=== PATIENT | female | born 1930 | race Caucasian/White ===

== ENCOUNTER 2017-12-09 17:00 | Inpatient (IN) | payer MEDICARE, BC ==
[~2017-12-09] VITALS: Ht 160 cm; Wt 49.1 kg
--- NOTE | ~2017-12-09 | MORECARE ---
CASE MANAGEMENT DISCHARGE SUMMARY PATIENT: BONNIE PAT UNIT: [id number] ADM DATE: 12/09/17 AGE: 87 : 30 SEX: F ROOM/BED: D.210 AUTHOR: NAUN,DOC PHYSICIAN: REFERRING PHYSICIAN: JORDAN FRANCE MD DATE OF SERVICE: 12/21/17 Discharge Plan Patient Name: BONNIE PAT Facility: [facility]:[place] : 1930 Planned Disposition: Alf Facility Anticipated Discharge Date: 12/22/17 Discharge Date: Expected LOS: 13 Initial Reviewer: [id number] Initial Review Date: 12/14/2017 Generated: 12/21/17 12:42 pm Comments DCP- Discharge Planning Updated by [id number]: Danilo Lyon on 12/21/17 7:[address] Patient Name: BONNIE PAT Encounter No: [id number] : 1930 Primary Insurance: MEDICARE A & B Anticipated DC Date: 12-22-2017 Planned Disposition: Alf Facility External Planned Provider: [facility], MEDICARE REHAB BED DCP follow-up note: CM FAXED REHAB REFERRAL TO [facility] AT [phone]. CM TO CALL AND FOLLOW UP WITH [facility] LATER TODAY AT [phone]. CM WAITING REHAB ADMISSION DETERMINATION FROM [facility] IN [place]. ROMEO Arreaga DCP- Discharge Planning Updated by [id number]: Danilo Lyon on 12/20/17 4:[address] Patient Name: BONNIE PAT Encounter No: [id number] : 1930 Primary Insurance: MEDICARE A & B Anticipated DC Date: 12-22-2017 Planned Disposition: Alf Facility External [facility]ARE REH[facility] BED DCP follow-up note: CM SPOKE TO DR. CHILDS WHO REPORTS PT MAY NEED REHAB AT DISCHARGE. CM SPOKE TO PT AND SPOUSE IN ROOM. BONNIE PAT provided verbal consent to discuss current and ongoing needs with/in the presence of: GERMANIA SPOUSE. CM DISCUSSED AVAILABILITY OF MEDICAL EQUIPMENT, HOME HEALTH AND REHAB SERVICES. PT THINKS SHE WILL NEED REHAB AT DISCHARGE, WANTS REFERRAL TO [facility] SHE WAS THERE LAST YEAR AND RECEIVED GOOD REHAB SERVICES. CHOICE SIGNED, IMPORTANT MESSAGE FROM MEDICARE PROVIDED AND DISCUSSED. CM TO SEND REHAB REFERRAL TO [facility] SOON POSSIBLE FOR REHAB ADMISSION DETERMINATION. Danilo Lyon, CASE MANAGEMENT DCP- Discharge Planning Updated by [email or web address]: Lydia Michael on 12/14/17 4:[address] Patient Name: BONNIE PAT Admission Status: Elective Accout number: [id number] Admission Date: 12-09-2017 : 1930 Admission Diagnosis:PNEUMONIA, UNSPECIFIED ORGANISM Attending: JORDAN FRANCE Current LOS: 5 Anticipated DC Date: Planned Disposition: Home Primary Insurance: MEDICARE A & B Discharge Planning Comments: CM met with patient's son Germania Pat whom lives with patient and her . Plans for patient to return to their home. Patient may need walk test if continues to need 02. Family denies any discharge needs at this time. CM will continue to follow and assist as needed with discharge planning / needs. General Maintenance Technician: Lydia Michael DCPIA - Discharge Planning Initial Assessment Updated by [email or web address]: Danilo Lyon on 12/21/17 11:37 am * Is the patient Alert and Oriented? Yes * How many steps to enter\exit or inside your home? * PCP Dr. Davie Flores * Pharmacy [facility] in [place] * Preadmission Environment Home with Family * ADLs Independent * Equipment Walker * Other Equipment Bedside commode, cane, tub bench, * List name and contact numbers for known caregivers / representatives who currently or will assist patient after discharge: GERMANIA PAT, SPOUSE, CIPRIANO RIVERA, DTR, * Verbal permission to speak to the caregivers and representatives has been obtained from the patient. Yes * Community resources currently utilized None * Additional services required to return to the preadmission environment? No * Can the patient safely return to the preadmission environment? Yes * Has this patient been hospitalized within the prior 30 days at any hospital? No Coverage Notice Reviewer: [id number] - Danilo Lyon Notice Issued Date-Time: 12/20/2017 15:25 Notice Type: Patient Choice Letter Notice Delivered To: Family Member Relationship to Patient: Spouse Brand Planner Name: GERMANIA PAT Delivery Method: HAND - Hand Delivered Allie Days: Prior Verbal Notification: Recipient Understood Notice: Yes Recipient Signature: Yes Med Rec Note Co-signed by Attending: Coverage Notice Comment: [facility] [place] Reviewer: [id number] Svitlana Lyon Notice Issued Date-Time: 12/20/2017 15:25 Notice Type: IM Discharge Notice Notice Delivered To: Family Member Relationship to Patient: Spouse Brand Planner Name: GERMANIA PAT Delivery Method: HAND - Hand Delivered Allie Days: Prior Verbal Notification: Recipient Understood Notice: Yes Recipient Signature: Yes Med Rec Note Co-signed by Attending: Coverage Notice Comment: Last DP export: 12/21/17 7:25 Patient Name: BONNIE PAT Page 31959 at 1142 All edits/amendments must be made on the electronic document DICTATION DATE: 12/21/17 1141 AGENT SPA DESK: ANDREAS 12/21/17 1141 RPT#: [id number] DC DATE: STATUS: ADM IN [facility] [address] [place] [address] END OF REPORT
--- NOTE | ~2017-12-09 | MORECARE ---
CASE MANAGEMENT DISCHARGE SUMMARY PATIENT: BONNIE SHAW UNIT: [id number] ADM DATE: 12/09/17 AGE: 87 : 30 SEX: F ROOM/BED: D.2301 AUTHOR: ISAK MAGALLON PHYSICIAN: REFERRING PHYSICIAN: JORDAN FRANCE MD DATE OF SERVICE: 12/14/17 Discharge Plan Patient Name: BONNIE SHAW [facility] [facility] 1930 Planned Disposition: Home Anticipated Discharge Date: Discharge Date: Expected LOS: Initial Reviewer: [id number] Initial Review Date: 12/14/2017 Generated: 12/14/17 6:29 pm DCPIA - Discharge Planning Initial Assessment Updated by [id number]: Lydia Michael on 12/14/17 5:23 pm * Is the patient Alert and Oriented? Yes * How many steps to enter\exit or inside your home? * PCP Dr. Davie Flores * Pharmacy [facility] in [place] * Preadmission Environment Home with Family * ADLs Independent * Equipment Walker * Other Equipment Bedside commode, cane, tub bench, * Verbal permission to speak to the caregivers and representatives has been obtained from the patient. Yes * Community resources currently utilized None * Additional services required to return to the preadmission environment? No * Can the patient safely return to the preadmission environment? Yes * Has this patient been hospitalized within the prior 30 days at any hospital? No Last DP export: 12/14/17 4:22 Patient Name: BONNIE SHAW Page 48818 at 1729 All edits/amendments must be made on the electronic document DICTATION DATE: 12/14/171728 CUSTOMER ACCOUNTS ADVISOR: ANDREAS 12/14/171728 RPT#: [id number] DC DATE: STATUS: ADM IN [facility] [address] [place] [address] END OF REPORT
--- NOTE | ~2017-12-09 | MORECARE ---
CASE MANAGEMENT DISCHARGE SUMMARY PATIENT: BONNIE PAT UNIT: [id number] ADM DATE: 12/09/17 AGE: 87 : 30 SEX: F ROOM/BED: D.2107 AUTHOR: NAUN,DOC PHYSICIAN: REFERRING PHYSICIAN: JORDAN FRANCE MD DATE OF SERVICE: 12/21/17 Discharge Plan Patient Name: BONNIE PAT Facility: [facility] : 1930 Planned Disposition: Alf Facility Anticipated Discharge Date: 12/22/17 Discharge Date: Expected LOS: 13 Initial Reviewer: [id number] Initial Review Date: 12/14/2017 Generated: 12/21/17 4:36 pm Comments DCP- Discharge Planning Updated by [email or web address]: Danilo Lyon on 12/21/17 2:[address] Patient Name: BONNIE PAT Encounter No: [id number] : 1930 Primary Insurance: MEDICARE A & B Anticipated DC Date: 12-22-2017 Planned Disposition: Alf Facility External Planned Provider: [facility], MEDICARE REHAB BED DCP follow-up note: CM FAXED REHAB REFERRAL TO [facility] IN [facility] AT [phone]. CM TO CALL AND FOLLOW UP WITH [facility] LATER TODAY AT [phone]. CM WAITING REHAB ADMISSION DETERMINATION FROM [facility] IN [place]. Danilo Lyon, CASE MANAGEMENT Appended by Danilo Lyon on 12/21/2017 15:29 CDT: THOMAS SPOKE TO [facility] AT [facility], , WHO HAS RECEIVED REFERRAL AND WILL SCREEN FOR REHAB ADMIT. CM WAITING REHAB ADMISSION DETERMINATION FROM [facility] IN [place]. ROMEO Arreaga DCP- Discharge Planning Updated by [email or web address]: Danilo Lyon on 12/20/17 4:[address] Patient Name: BONNIE PAT Encounter No: [id number] : 1930 Primary Insurance: MEDICARE A & B Anticipated DC Date: 12-22-2017 Planned Disposition: Alf Facility External Planned Provider: [facility], MEDICARE REHAB BED DCP follow-up note: CM SPOKE TO DR. CHILDS WHO REPORTS PT MAY NEED REHAB AT DISCHARGE. CM SPOKE TO PT AND SPOUSE IN ROOM. BONNIE PAT provided verbal consent to discuss current and ongoing needs with/in the presence of: GERMANIA, SPOUSE. CM DISCUSSED AVAILABILITY OF MEDICAL EQUIPMENT, HOME HEALTH AND REHAB SERVICES. PT THINKS SHE WILL NEED REHAB AT DISCHARGE, WANTS REFERRAL TO [facility] SHE WAS THERE LAST YEAR AND RECEIVED GOOD REHAB SERVICES. CHOICE SIGNED, IMPORTANT MESSAGE FROM MEDICARE PROVIDED AND DISCUSSED. CM TO SEND REHAB REFERRAL TO [facility] SOON POSSIBLE FOR REHAB ADMISSION DETERMINATION. Danilo Lyon, CASE MANAGEMENT DCP- Discharge Planning Updated by [id number]: Lydia Michael on 12/14/17 4:[address] Patient Name: BONNIE PAT Admission Status: Elective Accout number: [id number] Admission Date: 12-09-2017 : 1930 Admission Diagnosis:PNEUMONIA, UNSPECIFIED ORGANISM Attending: JORDAN FRANCE Current LOS: 5 Anticipated DC Date: Planned Disposition: Home Primary Insurance: MEDICARE A & B Discharge Planning Comments: CM met with patient's son Germania Pat whom lives with patient and her . Plans for patient to return to their home. Patient may need walk test if continues to need 02. Family denies any discharge needs at this time. CM will continue to follow and assist as needed with discharge planning / needs. Manager Business Systems: Lydia Michael DCPIA - Discharge Planning Initial Assessment Updated by [email or web address]: Danilo Lyon on 12/21/17 11:37 am * Is the patient Alert and Oriented? Yes * How many steps to enter\exit or inside your home? * PCP Dr. Davie Flores * Pharmacy [facility] in [place] * Preadmission Environment Home with Family * ADLs Independent * Equipment Walker * Other Equipment Bedside commode, cane, tub bench, * List name and contact numbers for known caregivers / representatives who currently or will assist patient after discharge: GERMANIA PAT, SPOUSE, CIPRIANO RIVERA, DTR, * Verbal permission to speak to the caregivers and representatives has been obtained from the patient. Yes * Community resources currently utilized None * Additional services required to return to the preadmission environment? No * Can the patient safely return to the preadmission environment? Yes * Has this patient been hospitalized within the prior 30 days at any hospital? No Coverage Notice Reviewer: [id number] Lyon Notice Issued Date-Time: 12/20/2017 15:25 Notice Type: Patient Choice Letter Notice Delivered To: Family Member Relationship to Patient: Spouse Staff Development Manager Name: GERMANIA PAT Delivery Method: HAND - Hand Delivered Allie Days: Prior Verbal Notification: Recipient Understood Notice: Yes Recipient Signature: Yes Med Rec Note Co-signed by Attending: Coverage Notice Comment: [facility] [place] Reviewer: [email or web address] Svitlana Lyon Notice Issued Date-Time: 12/20/2017 15:25 Notice Type: IM Discharge Notice Notice Delivered To: Family Member Relationship to Patient: Spouse Staff Development Manager Name: GERMANIA PAT Delivery Method: HAND - Hand Delivered Allie Days: Prior Verbal Notification: Recipient Understood Notice: Yes Recipient Signature: Yes Med Rec Note Co-signed by Attending: Coverage Notice Comment: Last DP export: 12/21/17 10:42 Patient Name: BONNIE PAT Page 58830 at 1536 All edits/amendments must be made on the electronic document DICTATION DATE: 12/21/171534 LABOUR MARKET ECONOMIST: ANDREAS 12/21/171534 RPT#: [id number] DC DATE: STATUS: ADM IN [facility] [address] [place] [address] END OF REPORT
--- NOTE | ~2017-12-09 | MORECARE ---
CASE MANAGEMENT DISCHARGE SUMMARY PATIENT: BONNIE PAT UNIT: [id number] ADM DATE: 12/09/17 AGE: 87 : 30 SEX: F ROOM/BED: D.2101 AUTHOR: NAUN,DOC PHYSICIAN: REFERRING PHYSICIAN: JORDAN FRANCE MD DATE OF SERVICE: 12/25/17 Discharge Plan Patient Name: BONNIE PAT Facility: [facility]:[place] : 1930 Planned Disposition: Senior Living Facility Anticipated Discharge Date: 12/25/17 Discharge Date: Expected LOS: 16 Initial Reviewer: [id number] Initial Review Date: 12/14/2017 Generated: 12/25/17 2:39 pm Comments DCP- Discharge Planning Updated by [email or web address]: Danilo Lyon on 12/25/17 11:[address] Patient Name: BONNIE PAT Encounter No: [id number] : 1930 Primary Insurance: MEDICARE A & B Anticipated DC Date: 12-25-2017 Planned Disposition: Senior Living Facility External Planned Provider: [facility], MEDICARE REHAB BED DCP follow-up note: CM SPOKE TO COLEMAN AT [facility], , WHO REPORTS THEIR DOCTOR IS CONCERNED ABOUT INCREASING WHITE BLOOD CELL COUNT. CM NOTIFIED WILLIAM NELSON WHO ORDERED FURTHER LAB TESTING. CM RECEIVED LAB TESTING INDICATING DECREASING WHITE BLOOD CELLS AND FAXED UPDATE TO [facility] AT [phone]. CM CALLED ROMA AT [facility] AT [phone], DISCUSSED LAB TESTING, [facility] TO ACCEPT TODAY AND REQUESTED FAMILY TRANSPORT PT WILL NOT QUALIFY FOR AMBULANCE TRANSPORT. CM NOTIFIED WILLIAM NELSON WHO INFORMED CM THAT PT WILL DISCHARGE TO REHAB TODAY. CM NOTIFIED PT AND FAMILY IN ROOM, PT WANTS TO DISCHARGE TO REHAB TODAY, FAMILY REPORTS ABILITY TO TRANSPORT PT TO REHAB IN [place] AT DISCHARGE TODAY. IMPORTANT MESSAGE FROM MEDICARE PROVIDED AND EXPLAINED. CM FAXED DISCHARGE INFORMATION TO [facility] AT [phone]. NURSE REPORT TO BE CALLED TO [facility] IN [place], , FAMILY TO TRANSPORT PT TO [facility] IN [place]. ROMEO Arreaga DCP- Discharge Planning Updated by [email or web address]: Fatou Lipscomb on 12/22/17 11:[address] Patient Name: BONNIE PAT Admission Status: Elective Accout number: [id number] Admission Date: 12-09-2017 : 1930 Admission Diagnosis:PNEUMONIA, UNSPECIFIED ORGANISM Attending: JORDAN FRANCE Current LOS: 13 Anticipated DC Date: 12-22-2017 Planned Disposition: Senior Living Facility Primary Insurance: MEDICARE A & B Discharge Planning Comments: CM SPOKE WITH ROMA AT [facility], PHONE NUMBER [phone], AND SHE STATES THEY CAN TAKE THE PATIENT ON MONDAY. STATES NO NURSE PRACTITIONER ON THE WEEKEND AND THEY ARE AFRAID HER ILLNESS WILL DECLINE AND SHE WOULD BE SENT BACK TO THE HOSPITAL. CM TO CALL [facility] MONDAY TO SET UP TRANSPORT OF PATIENT. Hardware Trainer: Fatou Lipscomb DCP- Discharge Planning Updated by [id number]: Danilo Lyon on 12/21/17 2:[address] Patient Name: BONNIE PAT Encounter No: [id number] : 1930 Primary Insurance: MEDICARE A & B Anticipated DC Date: 12-22-2017 Planned Disposition: Senior Living Facility External Planned Provider: [facility], MEDICARE REHAB BED DCP follow-up note: CM FAXED REHAB REFERRAL TO [facility] AT [phone]. CM TO CALL AND FOLLOW UP WITH [facility] LATER TODAY AT [phone]. CM WAITING REHAB ADMISSION DETERMINATION FROM [facility] IN [place]. Danilo Lyon, CASE MANAGEMENT Appended by Danilo Lyon on 12/21/2017 15:29 CDT: CM SPOKE TO ROMA AT [facility], , WHO HAS RECEIVED REFERRAL AND WILL SCREEN FOR REHAB ADMIT. CM WAITING REHAB ADMISSION DETERMINATION FROM [facility] IN [place]. ROMEO Arreaga DCP- Discharge Planning Updated by [email or web address]: Danilo Lyon on 12/20/17 4:[address] Patient Name: BONNIE PAT Encounter No: [id number] : 1930 Primary Insurance: MEDICARE A & B Anticipated DC Date: 12-22-2017 Planned Disposition: Senior Living Facility External Planned Provider: [facility], MEDICARE REHAB BED DCP follow-up note: CM SPOKE TO DR. CHILDS WHO REPORTS PT MAY NEED REHAB AT DISCHARGE. CM SPOKE TO PT AND SPOUSE IN ROOM. BONNIE PAT provided verbal consent to discuss current and ongoing needs with/in the presence of: GERMANIA, SPOUSE. CM DISCUSSED AVAILABILITY OF MEDICAL EQUIPMENT, HOME HEALTH AND REHAB SERVICES. PT THINKS SHE WILL NEED REHAB AT DISCHARGE, WANTS REFERRAL TO [facility] SHE WAS THERE LAST YEAR AND RECEIVED GOOD REHAB SERVICES. CHOICE SIGNED, IMPORTANT MESSAGE FROM MEDICARE PROVIDED AND DISCUSSED. CM TO SEND REHAB REFERRAL TO [facility] SOON POSSIBLE FOR REHAB ADMISSION DETERMINATION. Danilo Lyon, CASE MANAGEMENT DCP- Discharge Planning Updated by [email or web address]: Lydia Michael on 12/14/17 4:[address] Patient Name: BONNIE PAT Admission Status: Elective Accout number: [id number] Admission Date: 12-09-2017 : 1930 Admission Diagnosis:PNEUMONIA, UNSPECIFIED ORGANISM Attending: JORDAN FRANCE Current LOS: 5 Anticipated DC Date: Planned Disposition: Home Primary Insurance: MEDICARE A & B Discharge Planning Comments: CM met with patient's son Germania Pat whom lives with patient and her . Plans for patient to return to their home. Patient may need walk test if continues to need 02. Family denies any discharge needs at this time. CM will continue to follow and assist as needed with discharge planning / needs. Hardware Trainer: Lydia Michael DCPIA - Discharge Planning Initial Assessment Updated by [email or web address]: Danilo Lyon on 12/21/17 11:37 am * Is the patient Alert and Oriented? Yes * How many steps to enter\exit or inside your home? * PCP Dr. Davie Flores * Pharmacy [facility] in [place] * Preadmission Environment Home with Family * ADLs Independent * Equipment Walker * Other Equipment Bedside commode, cane, tub bench, * List name and contact numbers for known caregivers / representatives who currently or will assist patient after discharge: GERMANIA PAT, SPOUSE, CIPRIANO RIVERA, DTR, * Verbal permission to speak to the caregivers and representatives has been obtained from the patient. Yes * Community resources currently utilized None * Additional services required to return to the preadmission environment? No * Can the patient safely return to the preadmission environment? Yes * Has this patient been hospitalized within the prior 30 days at any hospital? No Coverage Notice Reviewer: DERRICK Lyon Notice Issued Date-Time: 12/20/2017 15:25 Notice Type: Patient Choice Letter Notice Delivered To: Family Member Relationship to Patient: Spouse Lye Peel Operator Name: GERMANIA PAT Delivery Method: HAND - Hand Delivered Allie Days: Prior Verbal Notification: Recipient Understood Notice: Yes Recipient Signature: Yes Med Rec Note Co-signed by Attending: Coverage Notice Comment: [facility] [place] Reviewer: DERRICK Lyon Notice Issued Date-Time: 12/20/2017 15:25 Notice Type: IM Discharge Notice Notice Delivered To: Family Member Relationship to Patient: Spouse Lye Peel Operator Name: GERMANIA PAT Delivery Method: HAND - Hand Delivered Allie Days: Prior Verbal Notification: Recipient Understood Notice: Yes Recipient Signature: Yes Med Rec Note Co-signed by Attending: Coverage Notice Comment: Reviewer: DERRICK Lyon Notice Issued Date-Time: 12/25/2017 11:45 Notice Type: IM Discharge Notice Notice Delivered To: Family Member Relationship to Patient: Spouse Lye Peel Operator Name: germania pat Delivery Method: HAND - Hand Delivered Allie Days: Prior Verbal Notification: Recipient Understood Notice: Yes Recipient Signature: Yes Med Rec Note Co-signed by Attending: Coverage Notice Comment: Last DP export: 12/25/17 11:08 Patient Name: BONNIE PAT Page 29564 at 1339 All edits/amendments must be made on the electronic document DICTATION DATE: 12/25/17 1339 PROCESS CHEESE COOKER: ANDREAS 12/25/17 1339 RPT#: [id number] DC DATE: STATUS: ADM IN [facility] [address] [place] [address] END OF REPORT
--- NOTE | ~2017-12-09 | MORECARE ---
CASE MANAGEMENT DISCHARGE SUMMARY PATIENT: BONNIE PAT UNIT: [id number] ADM DATE: 12/09/17 AGE: 87 : 30 SEX: F ROOM/BED: D.210 AUTHOR: NAUN,DOC PHYSICIAN: REFERRING PHYSICIAN: JORDAN FRANCE MD DATE OF SERVICE: 12/21/17 Discharge Plan Patient Name: BONNIE PAT Facility: [facility]:[place] : 1930 Planned Disposition: Fdc Facility Anticipated Discharge Date: 12/22/17 Discharge Date: Expected LOS: 13 Initial Reviewer: [id number] Initial Review Date: 12/14/2017 Generated: 12/21/17 9:25 am Comments DCP- Discharge Planning Updated by [id number]: Danilo Lyon on 12/21/17 7:[address] Patient Name: BONNIE PAT Encounter No: [id number] : 1930 Primary Insurance: MEDICARE A & B Anticipated DC Date: 12-22-2017 Planned Disposition: Fdc Facility External Planned Provider: [facility], MEDICARE REHAB BED DCP follow-up note: CM FAXED REHAB REFERRAL TO [facility] AT [phone]. CM TO CALL AND FOLLOW UP WITH [facility] LATER TODAY AT [phone]. CM WAITING REHAB ADMISSION DETERMINATION FROM [facility] IN [place]. ROMEO Arreaga DCP- Discharge Planning Updated by [email or web address]: Danilo Lyon on 12/20/17 4:[address] Patient Name: BONNIE PAT Encounter No: [id number] : 1930 Primary Insurance: MEDICARE A & B Anticipated DC Date: 12-22-2017 Planned Disposition: Fdc Facility External [facility] DCP follow-up note: CM SPOKE TO DR. CHILDS WHO REPORTS PT MAY NEED REHAB AT DISCHARGE. CM SPOKE TO PT AND SPOUSE IN ROOM. BONNIE PAT provided verbal consent to discuss current and ongoing needs with/in the presence of: GERMANIA SPOUSE. CM DISCUSSED AVAILABILITY OF MEDICAL EQUIPMENT, HOME HEALTH AND REHAB SERVICES. PT THINKS SHE WILL NEED REHAB AT DISCHARGE, WANTS REFERRAL TO [facility] SHE WAS THERE LAST YEAR AND RECEIVED GOOD REHAB SERVICES. CHOICE SIGNED, IMPORTANT MESSAGE FROM MEDICARE PROVIDED AND DISCUSSED. CM TO SEND REH[facility] REFERRAL TO [facility] SOON POSSIBLE FOR REHAB ADMISSION DETERMINATION. Danilo Lyon, CASE MANAGEMENT DCP- Discharge Planning Updated by [email or web address]: Lydia Michael on 12/14/17 4:[address] Patient Name: BONNIE PAT Admission Status: Elective Accout number: [id number] Admission Date: 12-09-2017 : 1930 Admission Diagnosis:PNEUMONIA, UNSPECIFIED ORGANISM Attending: JORDAN FRANCE Current LOS: 5 Anticipated DC Date: Planned Disposition: Home Primary Insurance: MEDICARE A & B Discharge Planning Comments: CM met with patient's son Germania Pat whom lives with patient and her . Plans for patient to return to their home. Patient may need walk test if continues to need 02. Family denies any discharge needs at this time. CM will continue to follow and assist as needed with discharge planning / needs. Lead Level Designer: Lydia Michael DCPIA - Discharge Planning Initial Assessment Updated by [email or web address]: Lydia Michael on 12/14/17 5:23 pm * Is the patient Alert and Oriented? Yes * How many steps to enter\exit or inside your home? * PCP Dr. Davie Flores * Pharmacy [facility] in [place] * Preadmission Environment Home with Family * ADLs Independent * Equipment Walker * Other Equipment Bedside commode, cane, tub bench, * Verbal permission to speak to the caregivers and representatives has been obtained from the patient. Yes * Community resources currently utilized None * Additional services required to return to the preadmission environment? No * Can the patient safely return to the preadmission environment? Yes * Has this patient been hospitalized within the prior 30 days at any hospital? No Coverage Notice Reviewer: [id number] - Danilo Lyon Notice Issued Date-Time: 12/20/2017 15:25 Notice Type: Patient Choice Letter Notice Delivered To: Family Member Relationship to Patient: Spouse Hand Shaker Name: GERMANIA PAT Delivery Method: HAND - Hand Delivered Allie Days: Prior Verbal Notification: Recipient Understood Notice: Yes Recipient Signature: Yes Med Rec Note Co-signed by Attending: Coverage Notice Comment: [facility] [place] Reviewer: [id number] - Danilo Lyon Notice Issued Date-Time: 12/20/2017 15:25 Notice Type: IM Discharge Notice Notice Delivered To: Family Member Relationship to Patient: Spouse Hand Shaker Name: GERMANIA PAT Delivery Method: HAND - Hand Delivered Allie Days: Prior Verbal Notification: Recipient Understood Notice: Yes Recipient Signature: Yes Med Rec Note Co-signed by Attending: Coverage Notice Comment: Last DP export: 12/21/17 7:19 Patient Name: BONNIE PAT Page [id number] at 0825 All edits/amendments must be made on the electronic document DICTATION DATE: 12/21/17824 ENGINEER STEAM: ANDREAS 12/21/17824 RPT#: [id number] DC DATE: STATUS: ADM IN [facility] [address] [place] [address] END OF REPORT
--- NOTE | ~2017-12-09 | MORECARE ---
CASE MANAGEMENT DISCHARGE SUMMARY PATIENT: BONNIE PAT UNIT: [id number] ADM DATE: 12/09/17 AGE: 87 : 30 SEX: F ROOM/BED: D.2301 AUTHOR: NAUN,DOC PHYSICIAN: REFERRING PHYSICIAN: JORDAN FRANCE MD DATE OF SERVICE: 12/14/17 Discharge Plan Patient Name: BONNIE PAT Facility: [facility]:[place] : 1930 Planned Disposition: Home Anticipated Discharge Date: Discharge Date: Expected LOS: Initial Reviewer: [id number] Initial Review Date: 12/14/2017 Generated: 12/14/17 6:37 pm Comments DCP- Discharge Planning Updated by [id number]: Lydia Michael on 12/14/17 4:[address] Patient Name: BONNIE PAT Admission Status: Elective Accout number: [id number] Admission Date: 12-09-2017 : 1930 Admission Diagnosis:PNEUMONIA, UNSPECIFIED ORGANISM Attending: JORDAN FRANCE Current LOS: 5 Anticipated DC Date: Planned Disposition: Home Primary Insurance: MEDICARE A & B Discharge Planning Comments: CM met with patient's son Johan Pat whom lives with patient and her . Plans for patient to return to their home. Patient may need walk test if continues to need 02. Family denies any discharge needs at this time. CM will continue to follow and assist as needed with discharge planning / needs. Supervisor Inspection And Testing: Lydia Michael DCPIA - Discharge Planning Initial Assessment Updated by [email or web address]: Lydia Michael on 12/14/17 5:23 pm * Is the patient Alert and Oriented? Yes * How many steps to enter\exit or inside your home? * PCP Dr. Davie Flores * [facility] in [place] * Preadmission Environment Home with Family * ADLs Independent * Equipment Walker * Other Equipment Bedside commode, cane, tub bench, * Verbal permission to speak to the caregivers and representatives has been obtained from the patient. Yes * Community resources currently utilized None * Additional services required to return to the preadmission environment? No * Can the patient safely return to the preadmission environment? Yes * Has this patient been hospitalized within the prior 30 days at any hospital? No Last DP export: 12/14/17 4:29 Patient Name: BONNIE PAT Page 36182 at 1737 All edits/amendments must be made on the electronic document DICTATION DATE: 12/14/171735 MANAGER CARE MANAGEMENT: ANDREAS 12/14/171735 RPT#: [id number] DC DATE: STATUS: ADM IN [facility] [address] [place] [address] END OF REPORT
--- NOTE | ~2017-12-09 | MORECARE ---
CASE MANAGEMENT DISCHARGE SUMMARY PATIENT: BONNIE PAT UNIT: [id number] ADM DATE: 12/09/17 AGE: 87 : 30 SEX: F ROOM/BED: D.2106 AUTHOR: NAUN,DOC PHYSICIAN: REFERRING PHYSICIAN: JORDAN FRANCE MD DATE OF SERVICE: 12/25/17 Discharge Plan Patient Name: BONNIE PAT Facility: [facility]:[place] : 1930 Planned Disposition: Fci Facility Anticipated Discharge Date: 12/25/17 Discharge Date: Expected LOS: 16 Initial Reviewer: [id number] Initial Review Date: 12/14/2017 Generated: 12/25/17 1:08 pm Comments DCP- Discharge Planning Updated by [email or web address]: Danilo Lyon on 12/25/17 11:[address] Patient Name: BONNIE PAT Encounter No: [id number] : 1930 Primary Insurance: MEDICARE A & B Anticipated DC Date: 12-25-2017 Planned Disposition: [facility]ci Facility External Planned Provider: [facility], MEDICARE REHAB BED DCP follow-up note: CM SPOKE TO [place] AT [facility], , WHO REPORTS THEIR DOCTOR IS CONCERNED ABOUT INCREASING WHITE BLOOD CELL COUNT. CM NOTIFIED WILLIAM NELSON WHO ORDERED FURTHER LAB TESTING. CM RECEIVED LAB TESTING INDICATING DECREASING WHITE BLOOD CELLS AND FAXED UPDATE TO [facility] AT [phone]. CM CALLED ROMA AT [facility] AT [phone], DISCUSSED LAB TESTING, [facility] TO ACCEPT TODAY AND REQUESTED FAMILY TRANSPORT PT WILL NOT QUALIFY FOR AMBULANCE TRANSPORT. CM NOTIFIED WILLIAM NELSON WHO INFORMED CM THAT PT WILL DISCHARGE TO REHAB TODAY. CM NOTIFIED PT AND FAMILY IN ROOM, PT WANTS TO DISCHARGE TO REHAB TODAY, FAMILY REPORTS ABILITY TO TRANSPORT PT TO REHAB IN [place] AT DISCHARGE TODAY. IMPORTANT MESSAGE FROM MEDICARE PROVIDED AND EXPLAINED. CM FAXED DISCHARGE INFORMATION TO [facility] AT [phone]. NURSE REPORT TO BE CALLED TO [facility] IN [place], , FAMILY TO TRANSPORT PT TO [facility] IN [place]. ROMEO Arreaga DCP- Discharge Planning Updated by [id number]: Fatou Lipscomb on 12/22/17 11:[address] Patient Name: BONNIE PAT Admission Status: Elective Accout number: [id number] Admission Date: 12-09-2017 : 1930 Admission Diagnosis:PNEUMONIA, UNSPECIFIED ORGANISM Attending: JORDAN FRANCE Current LOS: 13 Anticipated DC Date: 12-22-2017 Planned Disposition: Fci Facility Primary Insurance: MEDICARE A & B Discharge Planning Comments: CM SPOKE WITH ROMA AT [facility], PHONE NUMBER [phone], AND SHE STATES THEY CAN TAKE THE PATIENT ON MONDAY. STATES NO NURSE PRACTITIONER ON THE WEEKEND AND THEY ARE AFRAID HER ILLNESS WILL DECLINE AND SHE WOULD BE SENT BACK TO THE HOSPITAL. CM TO CALL [facility] MONDAY TO SET UP TRANSPORT OF PATIENT. Surgeon/President: Fatou Lipscomb DCP- Discharge Planning Updated by [id number]: Danilo Lyon on 12/21/17 2:[address] Patient Name: BONNIE PAT Encounter No: [id number] : 1930 Primary Insurance: MEDICARE A & B Anticipated DC Date: 12-22-2017 Planned Disposition: Fci Facility External Planned Provider: [facility], MEDICARE REHAB BED DCP follow-up note: CM FAXED REHAB REFERRAL TO [facility] AT [phone]. CM TO CALL AND FOLLOW UP WITH [facility] LATER TODAY AT [phone]. CM WAITING REHAB ADMISSION DETERMINATION FROM [facility] IN [place]. Danilo Lyon, CASE MANAGEMENT Appended by Danilo Lyon on 12/21/2017 15:29 CDT: CM SPOKE TO ROMA AT [facility], , WHO HAS RECEIVED REFERRAL AND WILL SCREEN FOR REHAB ADMIT. CM WAITING REHAB ADMISSION DETERMINATION FROM [facility] IN [place]. ROMEO Arreaga DCP- Discharge Planning Updated by [email or web address]: Danilo Lyon on 12/20/17 4:[address] Patient Name: BONNIE PAT Encounter No: [id number] : 1930 Primary Insurance: MEDICARE A & B Anticipated DC Date: 12-22-2017 Planned Disposition: [facility]ci Facility External Planned Provider: [facility], MEDICARE REHAB BED DCP follow-up note: CM SPOKE TO DR. CHILDS WHO REPORTS PT MAY NEED REHAB AT DISCHARGE. CM SPOKE TO PT AND SPOUSE IN ROOM. BONNIE PAT provided verbal consent to discuss current and ongoing needs with/in the presence of: GERMANIA, SPOUSE. CM DISCUSSED AVAILABILITY OF MEDICAL EQUIPMENT, HOME HEALTH AND REHAB SERVICES. PT THINKS SHE WILL NEED REHAB AT DISCHARGE, WANTS REFERRAL TO [facility] SHE WAS THERE LAST YEAR AND RECEIVED GOOD REHAB SERVICES. CHOICE SIGNED, IMPORTANT MESSAGE FROM MEDICARE PROVIDED AND DISCUSSED. CM TO SEND REHAB REFERRAL TO [facility] SOON POSSIBLE FOR REHAB ADMISSION DETERMINATION. Danilo Lyon, CASE MANAGEMENT DCP- Discharge Planning Updated by [id number]: Lydia Michael on 12/14/17 4:[address] Patient Name: BONNIE PAT Admission Status: Elective Accout number: [id number] Admission Date: 12-09-2017 : 1930 Admission Diagnosis:PNEUMONIA, UNSPECIFIED ORGANISM Attending: JORDAN FRANCE Current LOS: 5 Anticipated DC Date: Planned Disposition: Home Primary Insurance: MEDICARE A & B Discharge Planning Comments: CM met with patient's son Germania Pat whom lives with patient and her . Plans for patient to return to their home. Patient may need walk test if continues to need 02. Family denies any discharge needs at this time. CM will continue to follow and assist as needed with discharge planning / needs. Surgeon/President: Lydia Michael DCPIA - Discharge Planning Initial Assessment Updated by [id number]: Danilo Lyon on 12/21/17 11:37 am * Is the patient Alert and Oriented? Yes * How many steps to enter\exit or inside your home? * PCP Dr. Davie Flores * Pharmacy [facility] in [place] * Preadmission Environment Home with Family * ADLs Independent * Equipment Walker * Other Equipment Bedside commode, cane, tub bench, * List name and contact numbers for known caregivers / representatives who currently or will assist patient after discharge: GERMANIA PAT, SPOUSE, CIPRIANO RIVERA, DTR, * Verbal permission to speak to the caregivers and representatives has been obtained from the patient. Yes * Community resources currently utilized None * Additional services required to return to the preadmission environment? No * Can the patient safely return to the preadmission environment? Yes * Has this patient been hospitalized within the prior 30 days at any hospital? No Coverage Notice Reviewer: DERRICK Lyon Notice Issued Date-Time: 12/20/2017 15:25 Notice Type: Patient Choice Letter Notice Delivered To: Family Member Relationship to Patient: Spouse Insurance Special Agent Name: GERAMNIA PAT Delivery Method: HAND - Hand Delivered Allie Days: Prior Verbal Notification: Recipient Understood Notice: Yes Recipient Signature: Yes Med Rec Note Co-signed by Attending: Coverage Notice Comment: [facility] [place] Reviewer: DERRICK Lyon Notice Issued Date-Time: 12/20/2017 15:25 Notice Type: IM Discharge Notice Notice Delivered To: Family Member Relationship to Patient: Spouse Insurance Special Agent Name: GERMANIA PAT Delivery Method: HAND - Hand Delivered Allie Days: Prior Verbal Notification: Recipient Understood Notice: Yes Recipient Signature: Yes Med Rec Note Co-signed by Attending: Coverage Notice Comment: Reviewer: DERRICK Lyon Notice Issued Date-Time: 12/25/2017 11:45 Notice Type: IM Discharge Notice Notice Delivered To: Family Member Relationship to Patient: Spouse Insurance Special Agent Name: germania pat Delivery Method: HAND - Hand Delivered Allie Days: Prior Verbal Notification: Recipient Understood Notice: Yes Recipient Signature: Yes Med Rec Note Co-signed by Attending: Coverage Notice Comment: Last DP export: 12/25/17 10:55 Patient Name: BONNIE PAT Page [id number] Electronically Signed by [facility] [place] on 12/25/17 at 1208 All edits/amendments must be made on the electronic document DICTATION DATE: 12/25/17 120 CUSTOM TAILOR APPRENTICE: ANDREAS 12/25/17 1208 RPT#: [id number] DC DATE: STATUS: ADM IN [facility] [address] [place] [address] END OF REPORT
--- NOTE | ~2017-12-09 | MORECARE ---
CASE MANAGEMENT DISCHARGE SUMMARY PATIENT: BONNIE PAT UNIT: [id number] ADM DATE: 12/09/17 AGE: 87 : 30 SEX: F ROOM/BED: D.2103 AUTHOR: NAUN,DOC PHYSICIAN: REFERRING PHYSICIAN: JORDAN FRANCE MD DATE OF SERVICE: 12/25/17 Discharge Plan Patient Name: BONNIE PAT Facility: [facility]:[place] : 1930 Planned Disposition: Usp Facility Anticipated Discharge Date: 12/25/17 Discharge Date: Expected LOS: 16 Initial Reviewer: [id number] Initial Review Date: 12/14/2017 Generated: 12/25/17 12:55 pm Comments DCP- Discharge Planning Updated by [email or web address]: Fatou Lipscomb on 12/22/17 11:[address] Patient Name: BONNIE PAT Admission Status: Elective Accout number: [id number] Admission Date: 12-09-2017 : 1930 Admission Diagnosis:PNEUMONIA, UNSPECIFIED ORGANISM Attending: JORDAN FRANCE Current LOS: 13 Anticipated DC Date: 12-22-2017 Planned Disposition: Usp Facility Primary Insurance: MEDICARE A & B Discharge Planning Comments: CM SPOKE WITH ROMA AT [facility], PHONE NUMBER [phone], AND SHE STATES THEY CAN TAKE THE PATIENT ON MONDAY. STATES NO NURSE PRACTITIONER ON THE WEEKEND AND THEY ARE AFRAID HER ILLNESS WILL DECLINE AND SHE WOULD BE SENT BACK TO THE HOSPITAL. CM TO CALL [facility] MONDAY TO SET UP TRANSPORT OF PATIENT. Special Agent Group Insurance: Fatou Lipscomb DCP- Discharge Planning Updated by [id number]: Danilo Lyon on 12/21/17 2:[address] Patient Name: BONNIE PAT Encounter No: [id number] : 1930 Primary Insurance: MEDICARE A & B Anticipated DC Date: 12-22-2017 Planned Disposition: Usp Facility External Planned Provider: [facility], MEDICARE REHAB BED DCP follow-up note: CM FAXED REH[facility] REFERRAL [facility] AT [phone]. CM TO CALL AND FOLLOW UP WITH [facility] TODAY AT [phone]. CM WAITING REHAB ADMISSION DETERMINATION FROM [facility] IN [place]. Danilo Lyon, CASE MANAGEMENT Appended by Danilo Lyon on 12/21/2017 15:29 CDT: THOMAS SPOKE TO ROMA AT [facility], , WHO HAS RECEIVED REFERRAL AND WILL SCREEN FOR REHAB ADMIT. CM WAITING REHAB ADMISSION DETERMINATION FROM [facility] IN [place]. ROMEO Arreaga DCP- Discharge Planning Updated by [id number]: Danilo Lyon on 12/20/17 4:[address] Patient Name: BONNIE PAT Encounter No: [id number] : 1930 Primary Insurance: MEDICARE A & B Anticipated DC Date: 12-22-2017 Planned Disposition: [facility]sp Facility External [facility] DCP follow-up note: CM SPOKE TO DR. CHILDS WHO REPORTS PT MAY NEED REHAB AT DISCHARGE. CM SPOKE TO PT AND SPOUSE IN ROOM. BONNIE PAT provided verbal consent to discuss current and ongoing needs with/in the presence of: GERMANIA, SPOUSE. CM DISCUSSED AVAILABILITY OF MEDICAL EQUIPMENT, HOME HEALTH AND REHAB SERVICES. PT THINKS SHE WILL NEED REHAB AT DISCHARGE, [facility] SHE WAS THERE LAST YEAR AND RECEIVED GOOD REHAB SERVICES. CHOICE SIGNED, IMPORTANT MESSAGE FROM MEDICARE PROVIDED AND DISCUSSED. CM TO SEND REHAB REFERRAL TO [facility] SOON POSSIBLE FOR REHAB ADMISSION DETERMINATION. ROMEO Arreaga DCP- Discharge Planning Updated by [email or web address]: Lydia Michael on 12/14/17 4:[address] Patient Name: BONNIE PAT Admission Status: Elective Accout number: [id number] Admission Date: 12-09-2017 : 1930 Admission Diagnosis:PNEUMONIA, UNSPECIFIED ORGANISM Attending: JORDAN FRANCE Current LOS: 5 Anticipated DC Date: Planned Disposition: Home Primary Insurance: MEDICARE A & B Discharge Planning Comments: CM met with patient's son Germania Pat whom lives with patient and her . Plans for patient to return to their home. Patient may need walk test if continues to need 02. Family denies any discharge needs at this time. CM will continue to follow and assist as needed with discharge planning / needs. Special Agent Group Insurance: Lydia APARICIO - Discharge Planning Initial Assessment Updated by DERRICK: Danilo Lyon on 12/21/17 11:37 am * Is the patient Alert and Oriented? Yes * How many steps to enter\exit or inside your home? * PCP Dr. Davie Flores * Pharmacy [facility] in [place] * Preadmission Environment Home with Family * ADLs Independent * Equipment Walker * Other Equipment Bedside commode, cane, tub bench, * List name and contact numbers for known caregivers / representatives who currently or will assist patient after discharge: GERMANIA PAT, SPOUSE, CIPRIANO RIVERA, DTR, * Verbal permission to speak to the caregivers and representatives has been obtained from the patient. Yes * Community resources currently utilized None * Additional services required to return to the preadmission environment? No * Can the patient safely return to the preadmission environment? Yes * Has this patient been hospitalized within the prior 30 days at any hospital? No Coverage Notice Reviewer: DERRICK Lyon Notice Issued Date-Time: 12/20/2017 15:25 Notice Type: Patient Choice Letter Notice Delivered To: Family Member Relationship to Patient: Spouse Router Tender Name: GERMANIA PAT Delivery Method: HAND - Hand Delivered Allie Days: Prior Verbal Notification: Recipient Understood Notice: Yes Recipient Signature: Yes Med Rec Note Co-signed by Attending: Coverage Notice Comment: [facility] [place] Reviewer: DERRICK Lyon Notice Issued Date-Time: 12/20/2017 15:25 Notice Type: IM Discharge Notice Notice Delivered To: Family Member Relationship to Patient: Spouse Router Tender Name: GERMANIA PAT Delivery Method: HAND - Hand Delivered Allie Days: Prior Verbal Notification: Recipient Understood Notice: Yes Recipient Signature: Yes Med Rec Note Co-signed by Attending: Coverage Notice Comment: Reviewer: DERRICK Lyon Notice Issued Date-Time: 12/25/2017 11:45 Notice Type: IM Discharge Notice Notice Delivered To: Family Member Relationship to Patient: Spouse Router Tender Name: germania pat Delivery Method: HAND - Hand Delivered Allie Days: Prior Verbal Notification: Recipient Understood Notice: Yes Recipient Signature: Yes Med Rec Note Co-signed by Attending: Coverage Notice Comment: Last DP export: 12/25/17 7:29 Patient Name: BONNIE PAT Page 51244 at 1155 All edits/amendments must be made on the electronic document DICTATION DATE: 12/25/17 1155 SCHOOL PSYCHOLOGY PROFESSOR: ANDREAS 12/25/17 1155 RPT#: [id number] DC DATE: STATUS: ADM IN [facility] [address] [place] [address] END OF REPORT
--- NOTE | ~2017-12-09 | MORECARE ---
CASE MANAGEMENT DISCHARGE SUMMARY PATIENT: BONNIE PTA UNIT: [id number] ADM DATE: 12/09/17 AGE: 87 : 30 SEX: F ROOM/BED: D.2101 AUTHOR: NAUN,DOC PHYSICIAN: REFERRING PHYSICIAN: JORDAN FRANCE MD DATE OF SERVICE: 12/22/17 Discharge Plan Patient Name: BONNIE PAT Facility: [facility]:[place] : 1930 Planned Disposition: [facility] Facility Anticipated Discharge Date: 12/22/17 Discharge Date: Expected LOS: 13 Initial Reviewer: [id number] Initial Review Date: 12/14/2017 Generated: 12/22/17 1:43 pm Comments DCP- Discharge Planning Updated by [id number]: Fatou Lipscomb on 12/22/17 11:[address] Patient Name: BONNIE PAT Admission Status: Elective Accout number: [id number] Admission Date: 12-09-2017 : 1930 Admission Diagnosis:PNEUMONIA, UNSPECIFIED ORGANISM Attending: JORDAN FRANCE Current LOS: 13 Anticipated DC Date: 12-22-2017 Planned Disposition: [facility] Facility Primary Insurance: MEDICARE A & B Discharge Planning Comments: CM SPOKE WITH ROMA AT [facility], PHONE NUMBER [phone], AND SHE STATES THEY CAN TAKE THE PATIENT ON MONDAY. STATES NO NURSE PRACTITIONER ON THE WEEKEND AND THEY ARE AFRAID HER ILLNESS WILL DECLINE AND SHE WOULD BE SENT BACK TO THE HOSPITAL. CM TO CALL [facility] MONDAY TO SET UP TRANSPORT OF PATIENT. Children Teacher: Fatou Lipscomb DCP- Discharge Planning Updated by [id number]: Danilo Lyon on 12/21/17 2:[address] Patient Name: BONNIE PAT Encounter No: [id number] : 1930 Primary Insurance: MEDICARE A & B Anticipated DC Date: 12-22-2017 Planned Disposition: [facility] Facility External Planned Provider: [facility], MEDICARE REHAB BED DCP follow-up note: CM FAXED REH[facility] REFERRAL [facility] AT [phone]. CM TO CALL AND FOLLOW UP WITH [facility] TODAY AT [phone]. CM WAITING REHAB ADMISSION DETERMINATION FROM [facility] IN [place]. Danilo Lyon, CASE MANAGEMENT Appended by Danilo Lyon on 12/21/2017 15:29 CDT: THOMAS SPOKE TO ROMA AT [facility], , WHO HAS RECEIVED REFERRAL AND WILL SCREEN FOR REHAB ADMIT. CM WAITING REHAB ADMISSION DETERMINATION FROM [facility] IN [place]. ROMEO Arreaga DCP- Discharge Planning Updated by [id number]: Danilo Lyon on 12/20/17 4:[address] Patient Name: BONNIE PAT Encounter No: [id number] : 1930 Primary Insurance: MEDICARE A & B Anticipated DC Date: 12-22-2017 Planned Disposition: [facility] Facility External Planned Provider[facility], MEDICARE REHAB BED DCP follow-up note: CM SPOKE TO DR. CHILDS WHO REPORTS PT MAY NEED REHAB AT DISCHARGE. CM SPOKE TO PT AND SPOUSE IN ROOM. BONNIE PAT provided verbal consent to discuss current and ongoing needs with/in the presence of: GERMANIA, SPOUSE. CM DISCUSSED AVAILABILITY OF MEDICAL EQUIPMENT, HOME HEALTH AND REHAB SERVICES. PT THINKS SHE WILL NEED REHAB AT DISCHARGE, [facility] AND RECEIVED GOOD REHAB SERVICES. CHOICE SIGNED, IMPORTANT MESSAGE FROM MEDICARE PROVIDED AND DISCUSSED. CM TO SEND REHAB REFERRAL TO [facility] SOON POSSIBLE FOR REHAB ADMISSION DETERMINATION. ROMEO Arreaga DCP- Discharge Planning Updated by [id number]: Lydia Michael on 12/14/17 4:[address] Patient Name: BONNIE PAT Admission Status: Elective Accout number: [id number] Admission Date: 12-09-2017 : 1930 Admission Diagnosis:PNEUMONIA, UNSPECIFIED ORGANISM Attending: JORDAN FRANCE Current LOS: 5 Anticipated DC Date: Planned Disposition: Home Primary Insurance: MEDICARE A & B Discharge Planning Comments: CM met with patient's son Germania Pat whom lives with patient and her . Plans for patient to return to their home. Patient may need walk test if continues to need 02. Family denies any discharge needs at this time. CM will continue to follow and assist as needed with discharge planning / needs. Children Teacher: Lydia APARICIO - Discharge Planning Initial Assessment Updated by DERRICK: Danilo Lyon on 12/21/17 11:37 am * Is the patient Alert and Oriented? Yes * How many steps to enter\exit or inside your home? * PCP Dr. Davie Flores * Pharmacy [facility] in [place] * Preadmission Environment Home with Family * ADLs Independent * Equipment Walker * Other Equipment Bedside commode, cane, tub bench, * List name and contact numbers for known caregivers / representatives who currently or will assist patient after discharge: GERMANIA PAT, SPOUSE, CIPRIANO RIVERA, DTR, * Verbal permission to speak to the caregivers and representatives has been obtained from the patient. Yes * Community resources currently utilized None * Additional services required to return to the preadmission environment? No * Can the patient safely return to the preadmission environment? Yes * Has this patient been hospitalized within the prior 30 days at any hospital? No Coverage Notice Reviewer: [id number] Lyon Notice Issued Date-Time: 12/20/2017 15:25 Notice Type: Patient Choice Letter Notice Delivered To: Family Member Relationship to Patient: Spouse Steel Plate Printer Name: GERMANIA PAT Delivery Method: HAND - Hand Delivered Allie Days: Prior Verbal Notification: Recipient Understood Notice: Yes Recipient Signature: Yes Med Rec Note Co-signed by Attending: Coverage Notice Comment: [facility] [place] Reviewer: [id number] Svitlaan Lyon Notice Issued Date-Time: 12/20/2017 15:25 Notice Type: IM Discharge Notice Notice Delivered To: Family Member Relationship to Patient: Spouse Steel Plate Printer Name: GERMANIA PAT Delivery Method: HAND - Hand Delivered Allie Days: Prior Verbal Notification: Recipient Understood Notice: Yes Recipient Signature: Yes Med Rec Note Co-signed by Attending: Coverage Notice Comment: Last DP export: 12/21/17 2:36 Patient Name: BONNIE PAT Page 55427 at 1243 All edits/amendments must be made on the electronic document DICTATION DATE: 12/22/17 1243 RETAIL STOCK CLERK: ANDREAS 12/22/17 1243 RPT#: [id number] DC DATE: STATUS: ADM IN [facility] [address] [place] [address] END OF REPORT
--- NOTE | ~2017-12-09 | MORECARE ---
CASE MANAGEMENT DISCHARGE SUMMARY PATIENT: BONNIE PAT UNIT: [id number] ADM DATE: 12/09/17 AGE: 87 : 30 SEX: F ROOM/BED: D.2106 AUTHOR: NAUN,DOC PHYSICIAN: REFERRING PHYSICIAN: JORDAN FRANCE MD DATE OF SERVICE: 12/21/17 Discharge Plan Patient Name: BONNIE PAT Facility: [facility]:[place] : 1930 Planned Disposition: [facility] Facility Anticipated Discharge Date: 12/22/17 Discharge Date: Expected LOS: 13 Initial Reviewer: [id number] Initial Review Date: 12/14/2017 Generated: 12/21/17 9:18 am Comments DCP- Discharge Planning Updated by [id number]: Danilo Lyon on 12/20/17 4:[address] Patient Name: BONNIE PAT Encounter No: [id number] : 1930 Primary Insurance: MEDICARE A & B Anticipated DC Date: 12-22-2017 Planned Disposition: [facility] Facility External Planned Provider: [facility], MEDICARE REHAB BED DCP follow-up note: CM SPOKE TO DR. CHILDS WHO REPORTS PT MAY NEED REHAB AT DISCHARGE. CM SPOKE TO PT AND SPOUSE IN ROOM. BONNIE PAT provided verbal consent to discuss current and ongoing needs with/in the presence of: GERMANIA, SPOUSE. CM DISCUSSED AVAILABILITY OF MEDICAL EQUIPMENT, HOME HEALTH AND REHAB SERVICES. PT THINKS SHE WILL NEED REHAB AT DISCHARGE, [facility] SHE WAS [facility] LA[facility] YE[facility] AND RECEIVED GOOD REHAB SERVICES. CHOICE SIGNED, IMPORTANT MESSAGE FROM MEDICARE PROVIDED AND DISCUSSED. CM TO SEND REHAB REFERRAL TO [facility] SOON POSSIBLE FOR REHAB ADMISSION DETERMINATION. Danilo Lyon CASE ANDI DCP- Discharge Planning Updated by [email or web address]: Lydia Michael on 12/14/17 4:[address] Patient Name: BONNIE PAT Admission Status: Elective Accout number: [id number] Admission Date: 12-09-2017 : 1930 Admission Diagnosis:PNEUMONIA, UNSPECIFIED ORGANISM Attending: JORDAN FRANCE Current LOS: 5 Anticipated DC Date: Planned Disposition: Home Primary Insurance: MEDICARE A & B Discharge Planning Comments: CM met with patient's son Germania Pat whom lives with patient and her . Plans for patient to return to their home. Patient may need walk test if continues to need 02. Family denies any discharge needs at this time. CM will continue to follow and assist as needed with discharge planning / needs. Engine Maintenance Mechanic: Lydia Michael DCPIA - Discharge Planning Initial Assessment Updated by [email or web address]: Lydia Michael on 12/14/17 5:23 pm * Is the patient Alert and Oriented? Yes * How many steps to enter\exit or inside your home? * PCP Dr. Davie Flores * Pharmacy [facility] in [place] * Preadmission Environment Home with Family * ADLs Independent * Equipment Walker * Other Equipment Bedside commode, cane, tub bench, * Verbal permission to speak to the caregivers and representatives has been obtained from the patient. Yes * Community resources currently utilized None * Additional services required to return to the preadmission environment? No * Can the patient safely return to the preadmission environment? Yes * Has this patient been hospitalized within the prior 30 days at any hospital? No External Providers External Provider: [facility] Next Contact Date: 12/21/2017 Service Request Date: Service Type: Resolution: Reviewer: Comments: Coverage Notice Reviewer: [id number] Svitlana Lyon Notice Issued Date-Time: 12/20/2017 15:25 Notice Type: Patient Choice Letter Notice Delivered To: Family Member Relationship to Patient: Spouse Loading Dock Helper Name: GERMANIA PAT Delivery Method: HAND - Hand Delivered Allie Days: Prior Verbal Notification: Recipient Understood Notice: Yes Recipient Signature: Yes Med Rec Note Co-signed by Attending: Coverage Notice Comment: [facility] [place] Reviewer: [id number] Svitlana Lyon Notice Issued Date-Time: 12/20/2017 15:25 Notice Type: IM Discharge Notice Notice Delivered To: Family Member Relationship to Patient: Spouse Loading Dock Helper Name: GERMANIA PAT Delivery Method: HAND - Hand Delivered Allie Days: Prior Verbal Notification: Recipient Understood Notice: Yes Recipient Signature: Yes Med Rec Note Co-signed by Attending: Coverage Notice Comment: Last DP export: 12/20/17 4:17 Patient Name: BONNIE PAT Page 97698 at 0819 All edits/amendments must be made on the electronic document DICTATION DATE: 12/21/17817 ELECTRICAL MAINTENANCE SUPERVISOR: ANDREAS 12/21/17817 RPT#: [id number] DC DATE: STATUS: ADM IN [facility] [address] [place] [address] END OF REPORT
--- NOTE | ~2017-12-09 | MORECARE ---
CASE MANAGEMENT DISCHARGE SUMMARY PATIENT: BONNIE PAT UNIT: [id number] ADM DATE: 12/09/17 AGE: 87 : 30 SEX: F ROOM/BED: D.2100 AUTHOR: NAUN,DOC PHYSICIAN: REFERRING PHYSICIAN: JORDAN FRANCE MD DATE OF SERVICE: 12/20/17 Discharge Plan Patient Name: BONNIE PAT Facility: [facility]:[place] : 1930 Planned Disposition: Care Home Facility Anticipated Discharge Date: 12/22/17 Discharge Date: Expected LOS: 13 Initial Reviewer: [id number] Initial Review Date: 12/14/2017 Generated: 12/20/17 6:17 pm Comments DCP- Discharge Planning Updated by [id number]: Danilo Lyon on 12/20/17 4:[address] Patient Name: BONNIE PAT Encounter No: [id number] : 1930 Primary Insurance: MEDICARE A & B Anticipated DC Date: 12-22-2017 Planned Disposition: Care Home Facility External Planned Provider: [facility], MEDICARE REHAB BED DCP follow-up note: CM SPOKE TO DR. CHILDS WHO REPORTS PT MAY NEED REHAB AT DISCHARGE. CM SPOKE TO PT AND SPOUSE IN ROOM. BONNIE PAT provided verbal consent to discuss current and ongoing needs with/in the presence of: GERMANIA, SPOUSE. CM DISCUSSED AVAILABILITY OF MEDICAL EQUIPMENT, HOME HEALTH AND REHAB SERVICES. PT THINKS SHE WILL NEED REHAB AT DISCHARGE, [facility] YE[facility] AND RECEIVED GOOD REHAB SERVICES. CHOICE SIGNED, IMPORTANT MESSAGE FROM MEDICARE PROVIDED AND DISCUSSED. CM TO SEND REHAB REFERRAL TO [facility] SOON POSSIBLE FOR REHAB ADMISSION DETERMINATION. ROMEO Arreaga DCP- Discharge Planning Updated by [id number]: Lydia Michael on 12/14/17 4:[address] Patient Name: BONNIE PAT Admission Status: Elective Accout number: [id number] Admission Date: 12-09-2017 : 1930 Admission Diagnosis:PNEUMONIA, UNSPECIFIED ORGANISM Attending: JORDAN FRANCE Current LOS: 5 Anticipated DC Date: Planned Disposition: Home Primary Insurance: MEDICARE A & B Discharge Planning Comments: CM met with patient's son Germania Pta whom lives with patient and her . Plans for patient to return to their home. Patient may need walk test if continues to need 02. Family denies any discharge needs at this time. CM will continue to follow and assist as needed with discharge planning / needs. Refrigeration Manager: Lydia Michael DCPIA - Discharge Planning Initial Assessment Updated by [email or web address]: Lydia Michael on 12/14/17 5:23 pm * Is the patient Alert and Oriented? Yes * How many steps to enter\exit or inside your home? * PCP Dr. Davie Flores * Pharmacy [facility] in [place] * Preadmission Environment Home with Family * ADLs Independent * Equipment Walker * Other Equipment Bedside commode, cane, tub bench, * Verbal permission to speak to the caregivers and representatives has been obtained from the patient. Yes * Community resources currently utilized None * Additional services required to return to the preadmission environment? No * Can the patient safely return to the preadmission environment? Yes * Has this patient been hospitalized within the prior 30 days at any hospital? No Coverage Notice Reviewer: [id number] Lyon Notice Issued Date-Time: 12/20/2017 15:25 Notice Type: Patient Choice Letter Notice Delivered To: Family Member Relationship to Patient: Spouse Chair Inspector And Leveler Name: GERMANIA PAT Delivery Method: HAND - Hand Delivered Allie Days: Prior Verbal Notification: Recipient Understood Notice: Yes Recipient Signature: Yes Med Rec Note Co-signed by Attending: Coverage Notice Comment: [facility] [place] Reviewer: [id number] Lyon Notice Issued Date-Time: 12/20/2017 15:25 Notice Type: IM Discharge Notice Notice Delivered To: Family Member Relationship to Patient: Spouse Chair Inspector And Leveler Name: GERMANIA PAT Delivery Method: HAND - Hand Delivered Allie Days: Prior Verbal Notification: Recipient Understood Notice: Yes Recipient Signature: Yes Med Rec Note Co-signed by Attending: Coverage Notice Comment: Last DP export: 12/14/17 4:37 Patient Name: BONNIE PAT Page 74323 at 1717 All edits/amendments must be made on the electronic document DICTATION DATE: 12/20/171716 AIRPLANE GASTANK LINER ASSEMBLER: ANDREAS 12/20/17 1717 RPT#: [id number] DC DATE: STATUS: ADM IN [facility] [address] [place] [address] END OF REPORT
--- NOTE | ~2017-12-09 | OP ---
PATIENT NAME: BONNIE SHAW MEDICAL RECORD: [id number] :[birth year] LOCATION:.[facility] D.2301 ADMISSION DATE:12/09/17 SURGEON: JOHAN RANGEL MD DATE OF OPERATION: 12/10/2017 PREOPERATIVE DIAGNOSES: 1. Empyema. 2. Pneumonia. 3. Lack of IV access, in need of IV access for IV antibiotics. POSTOPERATIVE DIAGNOSES: 1. Empyema. 2. Pneumonia. 3. Lack of IV access, in need of IV access for IV antibiotics. PROCEDURE: Insertion of right internal jugular triple lumen central venous catheter. SURGEON: Johan Rangel MD TILE LAYER DRAINAGE: None. BLOOD LOSS: Minimal. ANESTHESIA: Local. COMPLICATIONS: None. The risks, possible complications, and alternatives to the procedure were explained to the patient. She elects to proceed. OPERATIVE COURSE: The patient was seen in her ICU bed. The entire procedure was performed in the presence of a female nurse. The patient was positioned in the Trendelenburg position. The right neck was sterilely prepped and draped. A local anesthetic was used to infiltrate skin and subcutaneous tissues at the base of the right neck. The right internal jugular vein was percutaneously accessed in an antegrade fashion. Guidewire was passed easily. A small skin carter was accomplished. A vessel dilator was used to dilate a subcutaneous tract. A 16-cm triple lumen central venous catheter was inserted to the hub. It was sutured in place times 3. All lumens were flushed easily and aspirated dark, nonpulsatile blood. A stat portable chest x-ray is pending. TRANSINT:[id number] Voice Confirmation ID: [id number] DOCUMENT ID: [id number] JOHAN RANGEL MD at 1709 CC: [id number] DICTATION DATE: 12/10/17 1505 PRESS SHOP SUPERVISOR: 12/10/17 1617 ADM IN [place] [address] [place] [address]
--- NOTE | ~2017-12-09 | MORECARE ---
CASE MANAGEMENT DISCHARGE SUMMARY PATIENT: BONNIE SHAW UNIT: [id number] ADM DATE: 12/09/17 AGE: 87 : 30 SEX: F ROOM/BED: D.2301 AUTHOR: ISAK MAGALLON PHYSICIAN: REFERRING PHYSICIAN: JORDAN FRANCE MD DATE OF SERVICE: 12/14/17 Discharge Plan Patient Name: BONNIE SHAW Facility: [facility]:[place] : 1930 Planned Disposition: Home Anticipated Discharge Date: Discharge Date: Expected LOS: Initial Reviewer: [id number] Initial Review Date: 12/14/2017 Generated: 12/14/17 6:22 pm Patient Name: BONNIE SHAW Page 58827 at 1722 All edits/amendments must be made on the electronic document DICTATION DATE: 12/14/171721 FOOD CRITIC: ANDREAS 12/14/171721 RPT#: [id number] MA DATE: STATUS: ADM IN [facility] [address] [place] [address] END OF REPORT
--- NOTE | ~2017-12-09 | MORECARE ---
CASE MANAGEMENT DISCHARGE SUMMARY PATIENT: BONNIE PAT UNIT: [id number] ADM DATE: 12/09/17 AGE: 87 : 30 SEX: F ROOM/BED: D.2103 AUTHOR: NAUN,DOC PHYSICIAN: REFERRING PHYSICIAN: JORDAN FRNACE MD DATE OF SERVICE: 12/25/17 Discharge Plan Patient Name: BONNIE PAT Facility: [facility]:[place] : 1930 Planned Disposition: Senior Living Facility Anticipated Discharge Date: 12/25/17 Discharge Date: Expected LOS: 16 Initial Reviewer: [id number] Initial Review Date: 12/14/2017 Generated: 12/25/17 9:29 am Comments DCP- Discharge Planning Updated by [id number]: Fatou Lipscomb on 12/22/17 11:[address] Patient Name: BONNIE PAT Admission Status: Elective Accout number: [id number] Admission Date: 12-09-2017 : 1930 Admission Diagnosis:PNEUMONIA, UNSPECIFIED ORGANISM Attending: JORDAN FRANCE Current LOS: 13 Anticipated DC Date: 12-22-2017 Planned Disposition: Senior Living Facility Primary Insurance: MEDICARE A & B Discharge Planning Comments: CM SPOKE WITH ROMA AT [facility], PHONE NUMBER [phone], AND SHE STATES THEY CAN TAKE THE PATIENT ON MONDAY. STATES NO NURSE PRACTITIONER ON THE WEEKEND AND THEY ARE AFRAID HER ILLNESS WILL DECLINE AND SHE WOULD BE SENT BACK TO THE HOSPITAL. CM TO CALL [facility] MONDAY TO SET UP TRANSPORT OF PATIENT. Sponge Press Operator: Fatou Lipscomb DCP- Discharge Planning Updated by [id number]: Danilo Lyon on 12/21/17 2:[address] Patient Name: BONNIE PAT Encounter No: [id number] : 1930 Primary Insurance: MEDICARE A & B Anticipated DC Date: 12-22-2017 Planned Disposition: Senior Living Facility External Planned Provider: [facility], MEDICARE REHAB BED DCP follow-up note: CM FAXED REH[facility] REFERRAL [facility] AT [phone]. CM TO CALL AND FOLLOW UP WITH [facility] TODAY AT [phone]. CM WAITING REHAB ADMISSION DETERMINATION FROM [facility] IN [place]. Danilo Lyon, CASE MANAGEMENT Appended by Danilo Lyon on 12/21/2017 15:29 CDT: THOMAS SPOKE TO ROMA AT [facility], , WHO HAS RECEIVED REFERRAL AND WILL SCREEN FOR REHAB ADMIT. CM WAITING REHAB ADMISSION DETERMINATION FROM [facility] IN [place]. ROMEO Arreaga DCP- Discharge Planning Updated by [id number]: Danilo Lyon on 12/20/17 4:[address] Patient Name: BONNIE PAT Encounter No: [id number] : 1930 Primary Insurance: MEDICARE A & B Anticipated DC Date: 12-22-2017 Planned Disposition: Senior Living Facility External [facility] B[facility] DCP follow-up note: CM SPOKE TO DR. CHILDS WHO REPORTS PT MAY NEED REHAB AT DISCHARGE. CM SPOKE TO PT AND SPOUSE IN ROOM. BONNIE PAT provided verbal consent to discuss current and ongoing needs with/in the presence of: GERMANIA, SPOUSE. CM DISCUSSED AVAILABILITY OF MEDICAL EQUIPMENT, HOME HEALTH AND REHAB SERVICES. PT THINKS SHE WILL NEED REHAB AT DISCHARGE, [facility] AND RECEIVED GOOD REHAB SERVICES. CHOICE SIGNED, IMPORTANT MESSAGE FROM MEDICARE PROVIDED AND DISCUSSED. CM TO SEND REHAB REFERRAL TO [facility] SOON POSSIBLE FOR REHAB ADMISSION DETERMINATION. ROMEO Arreaga DCP- Discharge Planning Updated by [id number]: Lydia Michael on 12/14/17 4:[address] Patient Name: BONNIE PAT Admission Status: Elective Accout number: [id number] Admission Date: 12-09-2017 : 1930 Admission Diagnosis:PNEUMONIA, UNSPECIFIED ORGANISM Attending: JORDAN FRANCE Current LOS: 5 Anticipated DC Date: Planned Disposition: Home Primary Insurance: MEDICARE A & B Discharge Planning Comments: CM met with patient's son Germania Pat whom lives with patient and her . Plans for patient to return to their home. Patient may need walk test if continues to need 02. Family denies any discharge needs at this time. CM will continue to follow and assist as needed with discharge planning / needs. Sponge Press Operator: Lydia APARICIO - Discharge Planning Initial Assessment Updated by DERRICK: Danilo Lyon on 12/21/17 11:37 am * Is the patient Alert and Oriented? Yes * How many steps to enter\exit or inside your home? * PCP Dr. Davie Flores * Pharmacy [facility] in [place] * Preadmission Environment Home with Family * ADLs Independent * Equipment Walker * Other Equipment Bedside commode, cane, tub bench, * List name and contact numbers for known caregivers / representatives who currently or will assist patient after discharge: GERMANIA PAT, SPOUSE, CIPRIANO RIVERA, DTR, * Verbal permission to speak to the caregivers and representatives has been obtained from the patient. Yes * Community resources currently utilized None * Additional services required to return to the preadmission environment? No * Can the patient safely return to the preadmission environment? Yes * Has this patient been hospitalized within the prior 30 days at any hospital? No Coverage Notice Reviewer: [id number] Lyon Notice Issued Date-Time: 12/20/2017 15:25 Notice Type: Patient Choice Letter Notice Delivered To: Family Member Relationship to Patient: Spouse Outside Sales Representative Name: GERMANIA PAT Delivery Method: HAND - Hand Delivered Allie Days: Prior Verbal Notification: Recipient Understood Notice: Yes Recipient Signature: Yes Med Rec Note Co-signed by Attending: Coverage Notice Comment: [facility] [place] Reviewer: [id number] Svitlana Lyon Notice Issued Date-Time: 12/20/2017 15:25 Notice Type: IM Discharge Notice Notice Delivered To: Family Member Relationship to Patient: Spouse Outside Sales Representative Name: GERMANIA PAT Delivery Method: HAND - Hand Delivered Allie Days: Prior Verbal Notification: Recipient Understood Notice: Yes Recipient Signature: Yes Med Rec Note Co-signed by Attending: Coverage Notice Comment: Last DP export: 12/22/17 11:43 Patient Name: BONNIE PAT Page 83710 at 0829 All edits/amendments must be made on the electronic document DICTATION DATE: 12/25/17828 ACCOUNTS PAYABLE TECHNICIAN: ANDREAS 12/25/17828 RPT#: [id number] DC DATE: STATUS: ADM IN [facility] [address] [facility] [place] [address] END OF REPORT
[2017-12-09 19:00] VITALS: BP 167/88
[2017-12-09 19:45] VITALS: BP 168/71; BMI 23.0
[2017-12-09 20:00] VITALS: BP 156/79
[2017-12-09 21:00] VITALS: BP 153/78
[2017-12-09 22:00] VITALS: BP 147/75
[2017-12-09 22:08] LABS: CHOLESTEROL - BODY FLUID 57 mg/dL; GLUCOSE - BODY FLUID 117 mg/dL
[2017-12-09 22:25] LABS: NEUT - BF 92 %
[2017-12-09 22:26] LABS: MESOTHELIALS BF 3 %
[2017-12-09 23:00] VITALS: BP 150/78
[2017-12-10] VITALS (28 sets, daily range): BP systolic 90–179; BP diastolic 62–98
[2017-12-10] MEDS ORDERED: LOVENOX30 MG/0.3 SC (02:00)
[2017-12-10] MEDS ORDERED: LEVOFLOXAC750 MG/150 IV (02:01)
[2017-12-10] MEDS ORDERED: ACETAMINOPHEN325 MG PO (02:02)
[2017-12-10] MEDS ORDERED: DULCOLAX10 MG/SUPP RC (02:03)
[2017-12-10] MEDS ORDERED: [UNRECOGNIZED DRUG - OTHER] INH (02:04)
[2017-12-10] MEDS ORDERED: COLACE100 MG PO (02:09)
[2017-12-10] MEDS ORDERED: HYDROCODON-ACE1 EAC7 PO (02:10)
[2017-12-10 04:51] LABS: APPEARANCE CLEAR (CLEAR); BILIRUBIN NEGATIVE (NEGATIVE); COLOR YELLOW (YELLOW); GLUCOSE NEGATIVE (NEGATIVE); KETONE SMALL mg/dL (NEGATIVE); NITRITE NEGATIVE (NEGATIVE); PROTEIN NEGATIVE (NEGATIVE); SPECIFIC GRAVITY 1.015 (1.005-1.020); UROBILINOGEN NORMAL (NORMAL)
[2017-12-10 04:59] LABS: BASOPHILS 0 % (0.0-2); EOSINOPHILS 0 %; HEMATOCRIT 31.1 % (36.0-48.0); HEMOGLOBIN 10.1 g/dL (12.0-16.0); IMMATURE GRANULOCYTES 0.3 % (0-5); MCH 28.6 pg (26.0-34.0); MCHC 32.5 g/dL (31.0-37.0); MCV 88.1 fL (80.0-100.0); MEAN PLATELET VOLUME 8.8 fL (7.4-10.4); MONOCYTES 3.9 % (2-11); NEUTROPHILS 93.8 % (40-80); PLATELET COUNT 306 10x3/uL (130-400); RBC 3.53 10x6/uL (4.20-6.10); RDW 13.9 % (11.5-14.5); WBC 16.7 10x3/uL (4.8-10.8)
[2017-12-10 05:08] LABS: CALC OSMOLALITY 297 mosm/kg (275-300); CALCIUM 7.9 mg/dL (8.5-10.1); CARBON DIOXIDE 23.6 mmol/L (21.0-32.0); CHLORIDE - SERUM 110 mmol/L (98-107); CREATININE - SERUM 1.2 mg/dL (0.6-1.3); GLUCOSE 158 mg/dL (74-106); POTASSIUM - SERUM 4.3 mmol/L (3.5-5.1); SODIUM 146 mmol/L (136-145); UREA NITROGEN 24 mg/dL (7-18)
[2017-12-10] MEDS ORDERED: IPRAT-ALBUT 0.5-3 ML UPD (07:47)
[2017-12-10] MEDS ORDERED: MILK OF MAGNESI30 ML PO (07:48)
[2017-12-10] MEDS ORDERED: ONDANSETRON4 MG/2 M3 IV (07:51)
[2017-12-10] MEDS ORDERED: VANCOCIN HCL250 MG IV (07:53)
[2017-12-10] MEDS ORDERED: LIPITOR20 MG PO (07:55)
[2017-12-10] MEDS ORDERED: COZAAR25 MG PO (07:55)
[2017-12-10] MEDS ORDERED: OMEPRAZOLE20 M1 PO (07:56)
[2017-12-10] MEDS ORDERED: CYMBALTA60 MG PO (07:56)
[2017-12-10] MEDS ORDERED: TIROSINT88 MCG PO (07:59)
[2017-12-10] MEDS ORDERED: HYDRALAZINE HCL25 MG PO (08:00)
[2017-12-10] MEDS ORDERED: NEURONTIN 300300 MG PO (08:01)
[2017-12-10] MEDS ORDERED: CYCLOBENZAPRINE10 MG PO (08:01)
[2017-12-10] MEDS ORDERED: COREG12.5 MG PO (08:02)
[2017-12-10] MEDS ORDERED: LASIX20 MG PO (08:03)
[2017-12-10] MEDS ORDERED: PHENERGAN DM SYR5 ML (08:04)
[2017-12-11] VITALS (25 sets, daily range): BP systolic 132–177; BP diastolic 11–122; Ht 160 cm; Wt 49.1 kg
[2017-12-11 05:07] LABS: BASOPHILS 0 % (0-2); EOSINOPHILS 0.1 % (0-7); HEMATOCRIT 29.8 % (36.0-48.0); HEMOGLOBIN 9.4 g/dL (12-16); IMMATURE GRANULOCYTES 0.3 % (0-5); LYMPHOCYTES 4.2 % (15-50); MCH 28.2 pg (26.0-34.0); MCHC 31.5 g/dL (31.0-37.0); MCV 89.5 fL (80.0-100.0); MEAN PLATELET VOLUME 8.9 fL (7.4-10.4); MONOCYTES 8.6 % (2-11); NEUTROPHILS 86.8 % (40-80); PLATELET COUNT 299 10x3/uL (130-400); RBC 3.33 10x6/uL (4.00-5.40)
[2017-12-11 05:28] LABS: ANION GAP 11.9 mmol/L (8-16); CALCIUM 7.9 mg/dL (8.5-10.1); CARBON DIOXIDE 27.5 mmol/L (21.0-32.0); CREATININE - SERUM 0.9 mg/dL (0.6-1.3); POTASSIUM - SERUM 4.4 mmol/L (3.5-5.1)
[2017-12-12] VITALS (24 sets, daily range): BP systolic 102–173; BP diastolic 49–102
[2017-12-12 04:56] LABS: BASOPHILS 0 % (0-2); HEMOGLOBIN 9.8 g/dL (12-16); IMMATURE GRANULOCYTES 0.3 % (0-5); LYMPHOCYTES 5.3 % (15-50); MCH 27.7 pg (26.0-34.0); MCHC 30.6 g/dL (31.0-37.0); MCV 90.4 fL (80.0-100.0); MEAN PLATELET VOLUME 8.8 fL (7.4-10.4); MONOCYTES 9.5 % (2-11); NEUTROPHILS 80.9 % (40-80); PLATELET COUNT 271 10x3/uL (130-400); RBC 3.54 10x6/uL (4.00-5.40); RDW 13.9 % (11.5-14.5)
[2017-12-12 04:58] LABS: ANION GAP 9.9 mmol/L (8-16); CALCIUM 8.3 mg/dL (8.5-10.1); CARBON DIOXIDE 29.8 mmol/L (21.0-32.0); CREATININE - SERUM 0.8 mg/dL (0.6-1.3); POTASSIUM - SERUM 4.7 mmol/L (3.5-5.1)
[2017-12-12 05:02] LABS: WBC 10.3 10x3/uL (4.8-10.8)
[2017-12-13] VITALS (24 sets, daily range): BP systolic 107–160; BP diastolic 7–90
[2017-12-13 05:55] LABS: ANION GAP 10.4 mmol/L (8-16); CALCIUM 8.2 mg/dL (8.5-10.1); CARBON DIOXIDE 30.9 mmol/L (21.0-32.0); CREATININE - SERUM 0.9 mg/dL (0.6-1.3); POTASSIUM - SERUM 4.3 mmol/L (3.5-5.1)
[2017-12-13 06:12] LABS: BASOPHILS 0.1 % (0-2); EOSINOPHILS 5.6 % (0-7); HEMATOCRIT 31.6 % (36.0-48.0); HEMOGLOBIN 9.9 g/dL (12-16); IMMATURE GRANULOCYTES 0.6 % (0-5); LYMPHOCYTES 6.5 % (15-50); MCH 27.8 pg (26.0-34.0); MCHC 31.3 g/dL (31.0-37.0); MCV 88.8 fL (80.0-100.0); MONOCYTES 8.5 % (2-11); NEUTROPHILS 78.7 % (40-80); PLATELET COUNT 250 10x3/uL (130-400); RBC 3.56 10x6/uL (4.00-5.40); RDW 13.3 % (11.5-14.5)
[2017-12-14] VITALS (24 sets, daily range): BP systolic 104–155; BP diastolic 55–109
[2017-12-14 04:33] LABS: BASOPHILS 0.1 % (0-2); EOSINOPHILS 5.3 % (0-7); HEMOGLOBIN 9.9 g/dL (12-16); IMMATURE GRANULOCYTES 0.9 % (0-5); LYMPHOCYTES 6.6 % (15-50); MCH 28.2 pg (26.0-34.0); MCHC 31.9 g/dL (31.0-37.0); MCV 88.3 fL (80.0-100.0); MONOCYTES 9.9 % (2-11); NEUTROPHILS 77.2 % (40-80); PLATELET COUNT 221 10x3/uL (130-400); RBC 3.51 10x6/uL (4.00-5.40); RDW 13.2 % (11.5-14.5); WBC 10.3 10x3/uL (4.8-10.8)
[2017-12-14 04:51] LABS: ANION GAP 8.4 mmol/L (8-16); CARBON DIOXIDE 30.8 mmol/L (21.0-32.0); CREATININE - SERUM 0.8 mg/dL (0.6-1.3); POTASSIUM - SERUM 4.2 mmol/L (3.5-5.1)
[2017-12-14 20:08] LABS: ACID FAST SMEAR Negative (()); AFB SPECIMEN PROCESSING Concentration (())
[2017-12-15] VITALS (24 sets, daily range): BP systolic 92–175; BP diastolic 48–85
[2017-12-15 09:05] LABS: BASOPHILS 0.1 % (0-2); EOSINOPHILS 5.8 % (0-7); HEMATOCRIT 32.3 % (36.0-48.0); HEMOGLOBIN 10.7 g/dL (12-16); IMMATURE GRANULOCYTES 1.4 % (0-5); LYMPHOCYTES 6.3 % (15-50); MCH 28.8 pg (26.0-34.0); MCHC 33.1 g/dL (31.0-37.0); MCV 87.1 fL (80.0-100.0); MEAN PLATELET VOLUME 9.5 fL (7.4-10.4); MONOCYTES 9.9 % (2-11); NEUTROPHILS 76.5 % (40-80); PLATELET COUNT 215 10x3/uL (130-400); RBC 3.71 10x6/uL (4.00-5.40); WBC 12.3 10x3/uL (4.8-10.8)
[2017-12-15 09:15] LABS: CALCIUM 7.8 mg/dL (8.5-10.1); CARBON DIOXIDE 30.2 mmol/L (21.0-32.0); CREATININE - SERUM 0.9 mg/dL (0.6-1.3); POTASSIUM - SERUM 4.2 mmol/L (3.5-5.1)
[2017-12-15 14:19] LABS: SPECIMEN SOURCE Urine (())
[2017-12-16] VITALS (22 sets, daily range): BP systolic 116–183; BP diastolic 59–111
[2017-12-16 04:26] LABS: ANION GAP 10.3 mmol/L (8-16); CALCIUM 7.5 mg/dL (8.5-10.1); CARBON DIOXIDE 27.6 mmol/L (21.0-32.0); POTASSIUM - SERUM 3.9 mmol/L (3.5-5.1)
[2017-12-16 04:27] LABS: BASOPHILS 0 % (0-2); EOSINOPHILS 6.6 % (0-7); HEMATOCRIT 29.3 % (36.0-48.0); HEMOGLOBIN 9.6 g/dL (12-16); IMMATURE GRANULOCYTES 1.6 % (0-5); LYMPHOCYTES 8.6 % (15-50); MCH 28.2 pg (26.0-34.0); MCHC 32.8 g/dL (31.0-37.0); MCV 86.2 fL (80.0-100.0); MEAN PLATELET VOLUME 9.6 fL (7.4-10.4); MONOCYTES 14.1 % (2-11); NEUTROPHILS 69.1 % (40-80); PLATELET COUNT 209 10x3/uL (130-400); WBC 9.4 10x3/uL (4.8-10.8)
[2017-12-17] VITALS (22 sets, daily range): BP systolic 90–187; BP diastolic 44–84
[2017-12-17 06:47] LABS: ANION GAP 12.3 mmol/L (8-16); CALCIUM 8.1 mg/dL (8.5-10.1); CARBON DIOXIDE 27.4 mmol/L (21.0-32.0); POTASSIUM - SERUM 3.7 mmol/L (3.5-5.1)
[2017-12-17 07:05] LABS: BASOPHILS 0.1 % (0-2); EOSINOPHILS 4.4 % (0-7); HEMATOCRIT 29.9 % (36.0-48.0); HEMOGLOBIN 9.9 g/dL (12-16); IMMATURE GRANULOCYTES 3.6 % (0-5); LYMPHOCYTES 10.3 % (15-50); MCH 28.5 pg (26.0-34.0); MCHC 33.1 g/dL (31.0-37.0); MCV 86.2 fL (80.0-100.0); MEAN PLATELET VOLUME 9.7 fL (7.4-10.4); MONOCYTES 14.4 % (2-11); NEUTROPHILS 67.2 % (40-80); PLATELET COUNT 232 10x3/uL (130-400); RBC 3.47 10x6/uL (4.00-5.40); RDW 13.1 % (11.5-14.5); WBC 9.7 10x3/uL (4.8-10.8)
[2017-12-18] VITALS (18 sets, daily range): BP systolic 76–170; BP diastolic 39–96
[2017-12-18 05:13] LABS: BASOPHILS 0.2 % (0-2); EOSINOPHILS 6.5 % (0-7); HEMOGLOBIN 8.9 g/dL (12-16); IMMATURE GRANULOCYTES 3.2 % (0-5); LYMPHOCYTES 9.7 % (15-50); MCH 28.3 pg (26.0-34.0); MEAN PLATELET VOLUME 9.4 fL (7.4-10.4); MONOCYTES 16.8 % (2-11); NEUTROPHILS 63.6 % (40-80); PLATELET COUNT 212 10x3/uL (130-400); RBC 3.14 10x6/uL (4.00-5.40); RDW 13.2 % (11.5-14.5); WBC 9.6 10x3/uL (4.8-10.8)
[2017-12-18 05:22] LABS: ANION GAP 8.7 mmol/L (8-16); CALCIUM 8.2 mg/dL (8.5-10.1); CARBON DIOXIDE 31.1 mmol/L (21.0-32.0); CREATININE - SERUM 1.2 mg/dL (0.6-1.3); POTASSIUM - SERUM 3.8 mmol/L (3.5-5.1)
[2017-12-19] VITALS (11 sets, daily range): BP systolic 107–165; BP diastolic 48–852
[2017-12-19 04:48] LABS: BASOPHILS 0.4 % (0-2); EOSINOPHILS 10.4 % (0-7); HEMOGLOBIN 8.8 g/dL (12-16); IMMATURE GRANULOCYTES 3.6 % (0-5); LYMPHOCYTES 11.5 % (15-50); MCH 28.3 pg (26.0-34.0); MCHC 32.6 g/dL (31.0-37.0); MCV 86.8 fL (80.0-100.0); MEAN PLATELET VOLUME 9.8 fL (7.4-10.4); MONOCYTES 14.9 % (2-11); NEUTROPHILS 59.2 % (40-80); PLATELET COUNT 240 10x3/uL (130-400); RBC 3.11 10x6/uL (4.00-5.40); RDW 13.3 % (11.5-14.5)
[2017-12-19 05:10] LABS: ANION GAP 7.5 mmol/L (8-16); CALCIUM 7.8 mg/dL (8.5-10.1); CARBON DIOXIDE 32.4 mmol/L (21.0-32.0); CREATININE - SERUM 1.1 mg/dL (0.6-1.3); POTASSIUM - SERUM 3.9 mmol/L (3.5-5.1)
[2017-12-20] VITALS: BP 147/61
[2017-12-20 04:00] VITALS: BP 156/74
[2017-12-20 05:23] LABS: BASOPHILS 0.4 % (0-2); EOSINOPHILS 10.9 % (0-7); HEMATOCRIT 27.7 % (36.0-48.0); HEMOGLOBIN 9.1 g/dL (12-16); IMMATURE GRANULOCYTES 3.1 % (0-5); LYMPHOCYTES 10.1 % (15-50); MCH 28.2 pg (26.0-34.0); MCHC 32.9 g/dL (31.0-37.0); MCV 85.8 fL (80.0-100.0); MEAN PLATELET VOLUME 9.4 fL (7.4-10.4); MONOCYTES 11.7 % (2-11); NEUTROPHILS 63.8 % (40-80); PLATELET COUNT 248 10x3/uL (130-400); RBC 3.23 10x6/uL (4.00-5.40); WBC 12.5 10x3/uL (4.8-10.8)
[2017-12-20 05:54] LABS: ANION GAP 8.6 mmol/L (8-16); CALCIUM 7.9 mg/dL (8.5-10.1); CARBON DIOXIDE 28.3 mmol/L (21.0-32.0); CREATININE - SERUM 0.9 mg/dL (0.6-1.3); POTASSIUM - SERUM 3.9 mmol/L (3.5-5.1)
[2017-12-20 08:38] VITALS: BP 148/76
[2017-12-20 12:01] VITALS: BP 140/63
[2017-12-20 16:31] VITALS: BP 128/50
[2017-12-20 20:00] VITALS: BP 122/491
[2017-12-21] VITALS: BP 126/77
[2017-12-21 04:00] VITALS: BP 139/65
[2017-12-21 08:06] VITALS: BP 137/64
[2017-12-21 09:29] LABS: ANION GAP 8.1 mmol/L (8-16); CALCIUM 7.8 mg/dL (8.5-10.1); CARBON DIOXIDE 31.4 mmol/L (21.0-32.0); CREATININE - SERUM 1.1 mg/dL (0.6-1.3); POTASSIUM - SERUM 3.5 mmol/L (3.5-5.1)
[2017-12-21 11:14] VITALS: BP 112/53
[2017-12-21 15:02] VITALS: BP 139/59
[2017-12-21 20:00] VITALS: BP 144/56
[2017-12-22] VITALS: BP 139/61
[2017-12-22 04:00] VITALS: BP 132/60
[2017-12-22 06:47] LABS: HEMATOCRIT 26.7 % (36.0-48.0); HEMOGLOBIN 9.1 g/dL (12-16); LYMPHOCYTES 11.2 % (15-50); MCH 28.9 pg (26.0-34.0); MCHC 34.1 g/dL (31.0-37.0); MCV 84.8 fL (80.0-100.0); MEAN PLATELET VOLUME 8.8 fL (7.4-10.4); NEUTROPHILS 76.8 % (40-80); RBC 3.15 10x6/uL (4.00-5.40); RDW 13.5 % (11.5-14.5); WBC 12.9 10x3/uL (4.8-10.8)
[2017-12-22 06:51] LABS: PLATELET COUNT 308 10x3/uL (130-400)
[2017-12-22 06:54] LABS: ANION GAP 9.4 mmol/L (8-16); CALCIUM 8.5 mg/dL (8.5-10.1); CARBON DIOXIDE 29.9 mmol/L (21.0-32.0); POTASSIUM - SERUM 4.3 mmol/L (3.5-5.1)
[2017-12-22 08:20] VITALS: BP 156/93
[2017-12-22 12:07] VITALS: BP 131/51
[2017-12-22 14:14] VITALS: BP 111/55
[2017-12-22 20:00] VITALS: BP 132/52
[2017-12-23 00:10] VITALS: BP 127/61
[2017-12-23 04:00] VITALS: BP 154/73
[2017-12-23 07:40] VITALS: BP 151/68
[2017-12-23 10:40] VITALS: BP 101/50
[2017-12-23 14:34] VITALS: BP 115/57
[2017-12-23 20:00] VITALS: BP 128/50
[2017-12-24 00:06] VITALS: BP 129/87
[2017-12-24 04:00] VITALS: BP 117/63
[2017-12-24 08:37] VITALS: BP 136/70
[2017-12-24 13:33] VITALS: BP 104/63
[2017-12-24 16:04] VITALS: BP 122/67
[2017-12-24 20:19] VITALS: BP 99/41
[2017-12-25] VITALS: BP 107/52
[2017-12-25 04:00] VITALS: BP 100/63
[2017-12-25 08:50] VITALS: BP 125/68
[2017-12-25 10:23] LABS: BASOPHILS 0.2 % (0-2); EOSINOPHILS 1.5 % (0-7); HEMATOCRIT 23.3 % (36.0-48.0); HEMOGLOBIN 7.8 g/dL (12-16); IMMATURE GRANULOCYTES 0.8 % (0-5); LYMPHOCYTES 9.2 % (15-50); MCH 28.9 pg (26.0-34.0); MCHC 33.5 g/dL (31.0-37.0); MCV 86.3 fL (80.0-100.0); MONOCYTES 9.7 % (2-11); NEUTROPHILS 78.6 % (40-80); PLATELET COUNT 247 10x3/uL (130-400); RDW 13.8 % (11.5-14.5); WBC 11.7 10x3/uL (4.8-10.8)
[2017-12-25 10:40] LABS: ALBUMIN 1.6 g/dL (3.4-5.0); ANION GAP 7.9 mmol/L (8-16); BILIRUBIN - TOTAL 0.24 mg/dL (0.2-1.3); CALCIUM 7.8 mg/dL (8.5-10.1); CARBON DIOXIDE 30.1 mmol/L (21.0-32.0); CREATININE - SERUM 1.3 mg/dL (0.6-1.3); MAGNESIUM - SERUM 1.9 mg/dL (1.8-2.4)
[2017-12-25 11:23] VITALS: BP 110/49
[2017-12-25] MEDS ORDERED: COREG12.5 MG PO (12:03)
[2017-12-25] MEDS ORDERED: TESSALON PERLE100 MG PO (12:04)
[2017-12-25] MEDS ORDERED: MIRALAX17 GM PO (12:04)
== END 2017-12-25 14:05 | DRG 191 ==
LOC: D.ICU 17:00 → EDSEX 19:30 → D.ICU 19:30 → D.M2 19:30 → D.ICU 12-10 21:42 → D.M2 12-19 14:08
PROVIDERS: Emergency Medicine; Family Medicine; Internal Medicine Nephrology; Internal Medicine Pulmonary Disease; Student in an Organized Health Care Education/Training Program
PROC: 05HM33Z Insertion of Infusion Device into Right Internal Jugular Vein, Percutaneous Approach (ICD-10-PCS; principal; 2017-12-10)
DX: J47.0 Bronchiectasis with acute lower respiratory infection (principal); J98.11 Atelectasis; N17.9 Acute kidney failure, unspecified; J91.8 Pleural effusion in other conditions classified elsewhere; J18.9 Pneumonia, unspecified organism; E78.5 Hyperlipidemia, unspecified; K21.9 Gastro-esophageal reflux disease without esophagitis; D64.9 Anemia, unspecified; K59.00 Constipation, unspecified; M06.9 Rheumatoid arthritis, unspecified; T78.3XXA Angioneurotic edema, initial encounter; I12.9 Hypertensive chronic kidney disease with stage 1 through stage 4 chronic kidney disease, or unspecified chronic kidney disease; N18.3 Chronic kidney disease, stage 3 (moderate); E03.9 Hypothyroidism, unspecified; I25.10 Atherosclerotic heart disease of native coronary artery without angina pectoris

== ENCOUNTER → 2018-05-22 15:40 | Outpatient (CLI) | payer MEDICARE, BC ==
[2017-12-11 15:14] VITALS: BMI 23.4
[~2018-05-22 15:40] MED LIST: ACETAMINOPHEN325 MG PO; COLACE100 MG PO; COREG12.5 MG PO; COZAAR25 MG PO; CYCLOBENZAPRINE10 MG PO; CYMBALTA60 MG PO; DULCOLAX10 MG/SUPP RC; HYDRALAZINE HCL25 MG PO; HYDROCODON-ACE1 EAC7 PO; IPRAT-ALBUT 0.5-3 ML UPD; LASIX20 MG PO; LEVOFLOXAC750 MG/150 IV; LIPITOR20 MG PO; LOVENOX30 MG/0.3 SC; MILK OF MAGNESI30 ML PO; MIRALAX17 GM PO; NEURONTIN 300300 MG PO; OMEPRAZOLE20 M1 PO; ONDANSETRON4 MG/2 M3 IV; PHENERGAN DM SYR5 ML; TESSALON PERLE100 MG PO; TIROSINT88 MCG PO; VANCOCIN HCL250 MG IV; [UNRECOGNIZED DRUG - OTHER] INH
[2018-05-22 15:57] LABS: BASOPHILS 0.6 % (0-2); EOSINOPHILS 7.1 % (0-7); HEMATOCRIT 30.6 % (36.0-48.0); IMMATURE GRANULOCYTES 0.3 % (0-5); LYMPHOCYTES 12.4 % (15-50); MCH 27.5 pg (26.0-34.0); MCHC 32.7 g/dL (31.0-37.0); MCV 84.3 fL (80.0-100.0); MEAN PLATELET VOLUME 10.2 fL (7.4-10.4); MONOCYTES 7.8 % (2-11); NEUTROPHILS 71.8 % (40-80); PLATELET COUNT 242 10x3/uL (130-400); RBC 3.63 10x6/uL (4.00-5.40); RDW 14.2 % (11.5-14.5); WBC 7.2 10x3/uL (4.8-10.8)
[2018-05-22 16:15] LABS: ALBUMIN 2.9 g/dL (3.4-5.0); ANION GAP 16.5 mmol/L (8-16); BILIRUBIN - TOTAL 0.43 mg/dL (0.2-1.3); CALCIUM 8.7 mg/dL (8.5-10.1); CARBON DIOXIDE 25.6 mmol/L (21.0-32.0); CREATININE - SERUM 1.2 mg/dL (0.6-1.3); POTASSIUM - SERUM 5.1 mmol/L (3.5-5.1); PROTEIN - SERUM 6.3 g/dL (6.4-8.2)
== END | disposition home or self-care (01) ==
LOC: D.LABREF 15:40
PROVIDERS: ATTEND Student in an Organized Health Care Education/Training Program
DX: Z51.81 Encounter for therapeutic drug level monitoring (principal); Z79.2 Long term (current) use of antibiotics

== ENCOUNTER → 2018-06-26 14:10 | Outpatient (CLI) | payer MEDICARE, BC ==
[2018-06-26 14:56] LABS: BASOPHILS 0.4 % (0-2); EOSINOPHILS 2.6 % (0-7); HEMATOCRIT 35.8 % (36.0-48.0); HEMOGLOBIN 11.9 g/dL (12-16); IMMATURE GRANULOCYTES 0.2 % (0-5); LYMPHOCYTES 19.4 % (15-50); MCH 28.6 pg (26.0-34.0); MCHC 33.2 g/dL (31.0-37.0); MCV 86.1 fL (80.0-100.0); MEAN PLATELET VOLUME 9.9 fL (7.4-10.4); MONOCYTES 9.9 % (2-11); NEUTROPHILS 67.5 % (40-80); PLATELET COUNT 201 10x3/uL (130-400); RBC 4.16 10x6/uL (4.00-5.40); RDW 13.6 % (11.5-14.5); WBC 5.5 10x3/uL (4.8-10.8)
[2018-06-26 15:13] LABS: ALBUMIN 4.1 g/dL (3.4-5.0); BILIRUBIN - TOTAL 0.48 mg/dL (0.2-1.3); CALCIUM 9.8 mg/dL (8.5-10.1); CARBON DIOXIDE 27.5 mmol/L (21.0-32.0); POTASSIUM - SERUM 4.5 mmol/L (3.5-5.1); PROTEIN - SERUM 7.6 g/dL (6.4-8.2)
== END | disposition home or self-care (01) ==
LOC: D.LABREF 14:10
PROVIDERS: Student in an Organized Health Care Education/Training Program
DX: Z00.00 Encounter for general adult medical examination without abnormal findings (principal)

== ENCOUNTER → 2018-08-14 16:09 | Outpatient (CLI) | payer MEDICARE, BC ==
[2017-12-11 15:14] VITALS: BMI 23.4
[2018-08-14 16:31] LABS: BASOPHILS 0.4 % (0-2); EOSINOPHILS 3.1 % (0-7); HEMATOCRIT 33.5 % (36.0-48.0); HEMOGLOBIN 10.9 g/dL (12-16); LYMPHOCYTES 21.8 % (15-50); MCH 28.5 pg (26.0-34.0); MCHC 32.5 g/dL (31.0-37.0); MCV 87.7 fL (80.0-100.0); MEAN PLATELET VOLUME 10.4 fL (7.4-10.4); MONOCYTES 9.6 % (2-11); NEUTROPHILS 65.1 % (40-80); PLATELET COUNT 169 10x3/uL (130-400); RBC 3.82 10x6/uL (4.00-5.40); RDW 13.2 % (11.5-14.5); WBC 5.4 10x3/uL (4.8-10.8)
[2018-08-14 16:54] LABS: ALBUMIN 3.7 g/dL (3.4-5.0); ANION GAP 15.5 mmol/L (8-16); BILIRUBIN - TOTAL 0.26 mg/dL (0.2-1.3); CARBON DIOXIDE 26.4 mmol/L (21.0-32.0); CREATININE - SERUM 1.3 mg/dL (0.6-1.3); POTASSIUM - SERUM 4.9 mmol/L (3.5-5.1); PROTEIN - SERUM 6.7 g/dL (6.4-8.2)
== END | disposition home or self-care (01) ==
LOC: D.LABREF 16:09
PROVIDERS: ATTEND Student in an Organized Health Care Education/Training Program
DX: Z51.81 Encounter for therapeutic drug level monitoring (principal); Z79.2 Long term (current) use of antibiotics

== ENCOUNTER → 2018-09-27 10:24 | Outpatient (CLI) | payer MEDICARE, BC ==
[2017-12-11 15:14] VITALS: BMI 23.4
== END | disposition home or self-care (01) ==
LOC: D.CT 10:24
PROVIDERS: ATTEND Internal Medicine Pulmonary Disease
DX: J18.9 Pneumonia, unspecified organism (principal)

== ENCOUNTER → 2019-01-30 09:43 | Outpatient (CLI) | payer MEDICARE, BC ==
[2017-12-11 15:14] VITALS: BMI 23.4
[2019-01-30 10:26] LABS: ALBUMIN 3.4 g/dL (3.4-5.0); BILIRUBIN - DIRECT 0.06 mg/dL (0.00-0.30); BILIRUBIN - INDIRECT 0.2 mg/dL (0.00-1.00); BILIRUBIN - TOTAL 0.26 mg/dL (0.2-1.3); PROTEIN - SERUM 7.2 g/dL (6.4-8.2)
== END | disposition home or self-care (01) ==
LOC: D.LAB 09:43 → D.CT 11:00
PROVIDERS: ATTEND Internal Medicine Pulmonary Disease
DX: A31.0 Pulmonary mycobacterial infection (principal)